=== PATIENT | male | born 1940 | race Caucasian/White ===

== ENCOUNTER 2017-11-24 16:35 | Inpatient (IN) | payer OTHER ==
--- OUTSIDE RECORDS SUMMARY | 2017-11-24 16:37 | XMS REPORT | Clinical Summary ---
:1940 Author Organization [facility] Address [address] [place] [address] Care Team Providers Name Role Phone Ronal Olson MD Primary Care Provider Allergies Not on File Current Medications Not on file Active Problems Not on file Encounters Date Type Specialty Care Team Description 06/01/2017 Hospital Encounter Radiology Jarad, Acute pain of left shoulder; MD Alonzo Bursitis of left hip, unspecified bursa 06/01/2017 Transcribe Orders Access Koycaroleagaltafa, Acute pain of left shoulder (Primary Dx); MD Alonzo Bursitis of left hip, unspecified bursa after 11/23/2016 Social History Tobacco Use Types Packs/Day Years Used Date Never Assessed Sex Assigned at Date Recorded Not on file Last Filed Vital Signs Not on file Plan of Treatment Health Maintenance Due Date Last Done Comments SHINGRIX VACCINE (#1) 1991 ZOSTER VACCINE 2001 PNEUMOCOCCAL POLYSACCHARIDE VACCINE AGE 65 AND OVER 2006 PNEUMOCOCCAL-13 2006 INFLUENZA VACCINE 02/01/2018 Results XR Hip 2-3 View Left (06/01/2017 3:45 PM) Specimen Performing Laboratory [facility] [address] [place] [address] Narrative EXAMINATION:XR HIP 2-3 VIEWS LEFT CLINICAL HISTORY:M25.512 Pain in left shoulder, M70.72 Other bursitis of hipleft hip, pain in left shoulderother bursitis of left hip COMPARISON:None. FINDINGS: The bony pelvis appears intact. There is narrowing of the superior compartment of both hips with osteophytes. 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 There is mild sclerosis of the sacroiliac joints greater on the left. No extraluminal collections are noted. IMPRESSION: 1. Arthritic changes about the hips. 2. Extensive vascular calcification. 3. Mild gas and stool in the colon [id number] Procedure Note Hm Interface, Radiology Results Incoming - 06/01/2017 4:05 PM PROP SAWYER EXAMINATION: XR HIP 2-3 VIEWS LEFT CLINICAL HISTORY: M25.512 Pain in left shoulder, M70.72 Other bursitis of hip left hip, pain in left shoulder other bursitis of left hip COMPARISON: None. FINDINGS: The bony pelvis appears intact. There is narrowing of the superior compartment of both hips with osteophytes. 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 There is mild sclerosis of the sacroiliac joints greater on the left. No extraluminal collections are noted. IMPRESSION: 1. Arthritic changes about the hips. 2. Extensive vascular calcification. 3. Mild gas and stool in the colon [id number] after 11/23/2016 Insurance Payer Benefit Plan / Group Subscriber ID Type Phone Address MEDICARE MEDICARE PART A AND B xxxxxxxxxx Medicare [place], [place] [phone] [place] [address]
[2017-11-24] MEDS ORDERED: ACETAMINOPHEN 500 MG TAB ONE (17:26)
[2017-11-24] MEDS ORDERED: CEFTRIAXONE/SWI 1gm 1 GM/10 ML SYR ONE (17:26)
[2017-11-24] MEDS ORDERED: NA CHLORIDE 0.9% 1,000 ML ONE ×3 (17:26→23:38)
[2017-11-24] MEDS ORDERED: AZITHROMYCIN 500 MG/250 ML BAG ONE (17:26)
--- NOTE | 2017-11-24 17:40 | RAD REPORT ---
EXAM DESCRIPTION: Gabriel Single View11/24/2017 5:31 pm CLINICAL HISTORY: Chest pain COMPARISON: March 2016 FINDINGS: An 8 centimeter right upper lobe opacity is present. The remainder lungs appear clear of acute infiltrate. The lungs are hyperaerated. The heart is normal size. Postsurgical changes involve the chest IMPRESSION: 8 centimeter right upper lobe opacity most likely representing pneumonia. This should b e followed until it has cleared to help exclude a post obstructive process/underlying mass
--- NOTE | 2017-11-24 17:56 | ER ---
Nurse's Notes [facility] Name: Meño Penn Age: 77 yrs Sex: Male : 1940 Arrival Date: 11/24/2017 Time: 16:39 Bed 18 Private MD: Ronal Olson E Diagnosis: Pneumonia, unspecified organism;Hypoxemia Presentation: 11/24 16:42 Presenting complaint: Patient states: Sent by Dr Piper for pneumonia. Transition of aj care: patient was received from another setting of care (ambulatory primary care physician practice). Onset of symptoms was November 24, 2017. Care prior to arrival: None. 16:42 Method Of Arrival: Wheelchair aj 16:42 Acuity: DANAY 2 aj 16:55 Risk Assessment: Do you want to hurt yourself or someone else? Patient reports no hb desire to harm self or others. 17:01 Initial Sepsis Screen: Does the patient meet any 2 criteria? RR > 20 per min. Temp hb <36.0*C (96.8*F)) or > 38.3*C (100.4*F). HR > 90 bpm. Yes Does the patient have a suspected source of infection? Yes: Productive cough/pneumonia If YES to both, name of provider notified: Jose Juan Johnson NP Triage Assessment: 16:43 General: Appears in no apparent distress. uncomfortable, Behavior is calm, cooperative, aj appropriate for age. Neuro: Level of Consciousness is awake, alert, obeys commands, Oriented to person, place, time, situation, Appropriate for age. Respiratory: Reports shortness of breath cough that is pain with respiration Airway is patent Respiratory effort is even, unlabored, Respiratory pattern is symmetrical, tachypnea the patient has mild shortness of breath. Derm: Skin is intact, is thin, Skin is flushed, Skin temperature is hot. Historical: - Allergies: 16:43 nyacin; aj - PMHx: 16:43 COPD; Diabetes - NIDDM; Hypertension; aj - PSHx: 16:43 Heart Surgery; neck [id number]-[id number]; intestinal surgery - non-specific; aj - Immunization history:: Adult Immunizations up to date. - Social history:: Smoking status: Patient/guardian denies using tobacco. - Ebola Screening: : No symptoms or risks identified at this time. Screenin:54 Abuse screen: Denies threats or abuse. Denies injuries from another. Nutritional hb screening: No deficits noted. Tuberculosis screening: No symptoms or risk factors identified. Fall Risk None identified. Assessment: 16:53 General: Appears in no apparent distress. ill, Behavior is calm, cooperative. Pain: hb Pain currently is 5 out of 10 on a pain scale. Neuro: Level of Consciousness is awake, alert, obeys commands, Oriented to person, place, time, situation. Cardiovascular: Heart tones S1 S2 present Capillary refill < 3 seconds Patient's skin is warm and dry. Rhythm is sinus tachycardia. Respiratory: Airway is patent Trachea midline Respiratory effort is even, mildly labored Respiratory pattern is regular, tachypnea Breath sounds with rhonchi bilaterally. GI: No signs and/or symptoms were reported involving the gastrointestinal system. : No signs and/or symptoms were reported regarding the genitourinary system. EENT: No signs and/or symptoms were reported regarding the EENT system. Derm: No signs and/or symptoms reported regarding the dermatologic system. Skin is intact, Skin is pink, warm \T\ dry. Musculoskeletal: No signs and/or symptoms reported regarding the musculoskeletal system. 18:01 Reassessment: Patient appears in no apparent distress at this time. Patient and/or hb family updated on plan of care and expected duration. Pain level reassessed. Patient is alert, oriented x 3, equal unlabored respirations, skin warm/dry/pink. 18:01 Reassessment: Dr. Lerner at bedside. hb 18:32 Reassessment: Patient appears in no apparent distress at this time. Patient and/or hb family updated on plan of care and expected duration. Pain level reassessed. Patient is alert, oriented x 3, equal unlabored respirations, skin warm/dry/pink. Family at bedside. 19:18 Reassessment: Patient appears in no apparent distress at this time. No changes from jd3 previously documented assessment. Patient and/or family updated on plan of care and expected duration. Pain level reassessed. Patient is alert, oriented x 3, equal unlabored respirations, skin warm/dry/pink. Respiratory: Airway is patent Respiratory effort is even, Respiratory pattern is regular, Breath sounds with rhonchi bilaterally. 19:22 Reassessment: lab at bedside recollecting labs. jd3 21:28 Reassessment: Patient appears in no apparent distress at this time. Patient and/or jd3 family updated on plan of care and expected duration. Pain level reassessed. Patient is alert, oriented x 3, equal unlabored respirations, skin warm/dry/pink. pt back from CT. 21:43 Reassessment: Patient appears in no apparent distress at this time. Patient and/or jd3 family updated on plan of care and expected duration. Pain level reassessed. Patient is alert, oriented x 3, equal unlabored respirations, skin warm/dry/pink. pt reported understanding of need for admission. Vital Signs: 16:43 BP 125 / 67; Pulse 119; Resp 26; Temp 101.1; Pulse Ox 94% on R/A; Weight 70.31 kg; aj Height 5 ft. 11 in. (180.34 cm); 17:45 BP 124 / 64; Pulse 112; Resp 24; Pulse Ox 95% on R/A; hb 18:24 BP 138 / 68; Pulse 109; Resp 24; Temp 99.9(O); Pulse Ox 95% on R/A; Pain 4/10; hb 19:13 BP 123 / 67; Pulse 95; Resp 22; Pulse Ox 95% on R/A; mt 20:39 BP 123 / 67; Pulse 91; Resp 18 S; Pulse Ox 94% on R/A; jd3 21:26 BP 123 / 67; Pulse 91; Resp 18 S; Pulse Ox 94% on R/A; Pain 4/10; jd3 16:43 Body Mass Index 21.62 (70.31 kg, 180.34 cm) aj ED Course: 16:39 Patient arrived in ED. mr 16:39 Ronal Olson MD is Private Physician. mr 16:43 Triage completed. aj 16:43 Arm band placed on left wrist. Patient placed in an exam room. aj 16:52 Skylar Milligan, RN is Primary Nurse. hb 16:55 Patient has correct armband on for positive identification. Placed in gown. Bed in low hb position. Call light in reach. Side rails up X 1. 16:56 Jose Juan Johnson NP is PHCP. pm1 16:56 Santosh Swain MD is Attending Physician. pm1 17:16 First set of blood cultures drawn by me. Missed attempt(s): 22 gauge in right dh3 antecubital area. Bleeding controlled, band aid applied, catheter tip intact. 17:18 EKG done, by entry level automotive technician. reviewed by Jose Juan Johnson NP. at1 17:23 X-ray completed. Portable x-ray completed in exam room. Patient tolerated procedure bb2 well. 17:30 XRAY Chest (1 view) In Process Unspecified. EDMS 17:39 Missed attempt(s): 22 gauge in left hand. Bleeding controlled, band aid applied, dh3 catheter tip intact. 17:55 Bella Lerner MD is Hospitalizing Provider. pm1 17:55 Missed attempt(s): 22 gauge in right forearm. Bleeding controlled, band aid applied, kr2 catheter tip intact. 18:00 Inserted saline lock: 24 gauge in right upper arm, using aseptic technique. ,using hb aseptic technique. by SAMAN Alvarado. 20:19 Karina Mendoza MD is Hospitalizing Provider. pm1 21:03 Patient moved to CO. sj 21:26 CT completed. Patient moved back from CO. vm2 21:44 No provider procedures requiring assistance completed. Patient admitted, IV remains in jd3 place. Administered Medications: 17:33 Drug: Tylenol 1000 mg Route: PO; hb 18:23 Follow up: Response: No adverse reaction; Temperature is decreased hb 17:48 Not Given (changed to levaquin): AZITHromycin 500 mg IVPB once over 1 hrs; (mix in 250 pm1 mL NS) 17:48 CANCELLED (Change to levaquin 750): LevaQUIN 500 mg 100 ml IVPB once over 60 mins pm1 18:03 CANCELLED (change to vancomycin): LevaQUIN 750 mg 150 ml IVPB once over 90 mins pm1 18:12 Drug: NS 0.9% 1000 ml Route: IV; Rate: 1000 ml; Site: right upper arm; hb 21:47 Follow up: Response: No adverse reaction; IV Status: Completed infusion; IV Intake: jd3 1000ml 18:12 Drug: Rocephin - (cefTRIAXone) 1 grams Route: IVPB; Infused Over: 30 mins; Site: right hb upper arm; 18:34 Follow up: Response: No adverse reaction; IV Status: Completed infusion hb 18:20 Drug: vancoMYCIN 1 grams Route: IVPB; Infused Over: 2 hrs; Site: right upper arm; hb 21:47 Follow up: Response: No adverse reaction; IV Status: Completed infusion jd3 19:18 Drug: NS 0.9% 1000 ml Route: IV; Rate: 1000 ml; Site: right upper arm; jd3 21:47 Follow up: Response: No adverse reaction; IV Status: Completed infusion; IV Intake: jd3 1000ml Intake: 21:47 IV: 1000ml; Total: 1000ml. jd3 21:47 IV: 1000ml; Total: 2000ml. jd3 Outcome: 17:55 Decision to Hospitalize by Provider. pm1 20:20 Decision to Hospitalize by Provider. pm1 21:44 Condition: stable jd3 21:44 Instructed on the need for admit, Demonstrated understanding of instructions. 21:45 Admitted to Med/surg accompanied by nurse, via wheelchair, room 427, with chart, Report jd3 called to Nora DAVISON 21:51 Patient left the ED. bs1 Signatures: Dispatcher [employer] EDMS Sheila Schmidt, RN RN Fay Mccullough mr Brooks, Gracie Sheila gama, minilab operator EKG Tat1 Jose Juan Johnson, FRONT DESK FRONT DESK pm1 Skylar Milligan, RN RN Susan Villagran 2 [facility] Martin Santiago RN RN jd3 Jenny Crain RN RN mary2 Jessica Kapoor 2 Jessica Castillo, RN RN bs1 Corrections: (The following items were deleted from the chart) 18:25 18:04 BP 124 / 64; Pulse 112bpm; Resp 24bpm; Pulse Ox 95% RA; hb hb
--- NOTE | 2017-11-24 17:56 | EDPHYS ---
Physician Documentation [facility] Name: Meño Penn Age: 77 yrs Sex: Male : 1940 Arrival Date: 11/24/2017 Time: 16:39 Bed 18 Private MD: Ronal Olson E ED Physician Santosh Swain HPI: 11/24 18:00 This 77 yrs old Male presents to ER via Wheelchair with complaints of pm1 Pneumonia. 18:00 The patient or guardian reports cough, Occasional sputum, Shortness of breath. Onset: pm1 The symptoms/episode began/occurred Patient with shortness of breath and cough since the beginning of November. Patient had a CT scan of his Chest performed at [facility] on November 04. Patient was diagnosed with PE and was started on eliquis. Patient started having fevers 6 days ago. Seen by Dr. Chapman on Tuesday at [facility]. Patient was diagnosed with pneumonia and was offered admission. Patient refused admission at that time and was instructed to follow u with his PCP. Saw his PCP, Dr. Piper today and was instructed to report to the ER for evaluation of likely pneumonia. 18:00 Patient with nasal cancer in remission. pm1 Historical: - Allergies: 16:43 nyacin; aj - PMHx: 16:43 COPD; Diabetes - NIDDM; Hypertension; aj - PSHx: 16:43 Heart Surgery; neck coemfeo-sla-[id number]; intestinal surgery - non-specific; aj - Immunization history:: Adult Immunizations up to date. - Social history:: Smoking status: Patient/guardian denies using tobacco. - Ebola Screening: : No symptoms or risks identified at this time. ROS: 18:00 Eyes: Negative for injury, pain, redness, and discharge, ENT: Negative for injury, pm1 pain, and discharge, Neck: Negative for injury, pain, and swelling. 18:00 Abdomen/GI: Negative for abdominal pain, nausea, vomiting, diarrhea, and constipation, Back: Negative for injury and pain, : Negative for injury, bleeding, discharge, and swelling, MS/Extremity: Negative for injury and deformity, Skin: Negative for injury, rash, and discoloration, Neuro: Negative for headache, weakness, numbness, tingling, and seizure. 18:00 Constitutional: Positive for fever, Negative for poor PO intake. 18:00 Cardiovascular: Positive for chest pain, of the anterior aspect of right upper chest, Negative for edema, palpitations. 18:00 Respiratory: Positive for cough, occasional sputum, shortness of breath. Exam: 11/25 01:38 Constitutional: This is a well developed, well nourished patient who is awake, alert, pm1 and in no acute distress. Head/Face: Normocephalic, atraumatic. Eyes: Pupils equal round and reactive to light, extra-ocular motions intact. Lids and lashes normal. Conjunctiva and sclera are non-icteric and not injected. Cornea within normal limits. Periorbital areas with no swelling, redness, or edema. Neck: Trachea midline, no thyromegaly or masses palpated, and no cervical lymphadenopathy. Supple, full range of motion without nuchal rigidity, or vertebral point tenderness. No Meningismus. Chest/axilla: Normal chest wall appearance and motion. Nontender with no deformity. No lesions are appreciated. Cardiovascular: Regular rate and rhythm with a normal S1 and S2. No gallops, murmurs, or rubs. Normal PMI, no JVD. No pulse deficits. Abdomen/GI: Soft, non-tender, with normal bowel sounds. No distension or tympany. No guarding or rebound. No evidence of tenderness throughout. Back: No spinal tenderness. No costovertebral tenderness. Full range of motion. Skin: Warm, dry with normal turgor. Normal color with no rashes, no lesions, and no evidence of cellulitis. MS/ Extremity: Pulses equal, no cyanosis. Neurovascular intact. Full, normal range of motion. ENT: External ear(s): are unremarkable, Nose: External nose: Absent, Nasal mucosa: normal, Mouth: is normal. Respiratory: the patient does not display signs of respiratory distress, Respirations: normal, Breath sounds: bronchial sounds, are heard diffusely. Neuro: Orientation: is normal, Motor: is normal, Sensation: is normal. Vital Signs: 11/24 16:43 BP 125 / 67; Pulse 119; Resp 26; Temp 101.1; Pulse Ox 94% on R/A; Weight 70.31 kg; aj Height 5 ft. 11 in. (180.34 cm); 17:45 BP 124 / 64; Pulse 112; Resp 24; Pulse Ox 95% on R/A; hb 18:24 BP 138 / 68; Pulse 109; Resp 24; Temp 99.9(O); Pulse Ox 95% on R/A; Pain 4/10; hb 19:13 BP 123 / 67; Pulse 95; Resp 22; Pulse Ox 95% on R/A; mt 20:39 BP 123 / 67; Pulse 91; Resp 18 S; Pulse Ox 94% on R/A; jd3 21:26 BP 123 / 67; Pulse 91; Resp 18 S; Pulse Ox 94% on R/A; Pain 4/10; jd3 16:43 Body Mass Index 21.62 (70.31 kg, 180.34 cm) aj MDM: 16:57 Patient medically screened. pm1 17:54 Data reviewed: vital signs. pm1 17:54 Physician consultation: Bella Lerner MD was contacted at 17:54, regarding admission, pm1 patient's condition, in the emergency department to see patient at 17:54. 18:07 Physician consultation: Bella Lerner MD after a discussion of the case, a pm1 recommendation for transfer for higher level of care is made, Recommends transfer to [facility] post interpretation of patient's CT scan. Interpretation from November 04, 2017 "CT chest shows interval increase in right upper lobe nodule . Waxing and waning lung opacities consistent with infection/inflammation. Acute pulmonary embolism in segmental, subsegmental pulmonary arterial branches to the right upper lobe.". 20:00 ED course: [facility] refused transfer. Recommends admission to hospital here, treat pm1 patient's pneumonia and follow up with research animal facility supervisor on discharge. 20:17 Physician consultation: Karina Mendoza MD was contacted at 20:10, regarding admission, pm1 and will see patient Dr. Pena discussed with Dr. Mendoza admission and patient's condition. 11/24 17:06 Order name: Basic Metabolic Panel; Complete Time: 18:57 pm1 11/24 17:06 Order name: BNP; Complete Time: 21:09 pm1 11/24 17:06 Order name: CBC with Diff; Complete Time: 03:30 pm11/24 17:06 Order name: LFT's; Complete Time: 18:57 pm1 11/24 17:06 Order name: Magnesium; Complete Time: 18:57 pm1 11/24 17:06 Order name: PT-INR; Complete Time: 18:57 pm1 24 17:06 Order name: Ptt, Activated; Complete Time: 18:57 pm11/24 17:06 Order name: Troponin (emerg Dept Use Only); Complete Time: 19:39 pm11/24 17:06 Order name: Procalcitonin; Complete Time: 19:39 pm11/24 17:06 Order name: Lactate; Complete Time: 18:36 pm11/24 17:06 Order name: Blood Culture Adult (2) [facility] 11/24 20:02 Order name: Urine Dipstick--Ancillary (enter results) [facility] 11/24 21:02 Order name: Lipid Profile [facility] 11/24 21:02 Order name: Lipid Profile [facility] 11/24 17:06 Order name: XRAY Chest (1 view); Complete Time: 17:43 pm11/24 17:06 Order name: EKG; Complete Time: 17:07 pm11/24 17:06 Order name: Cardiac monitoring; Complete Time: 17:07 pm11/24 17:06 Order name: EKG - Nurse/Tech; Complete Time: 17:23 11/24 17:06 Order name: IV Saline Lock; Complete Time: 18:19 pm11/24 21:02 Order name: Thorax W/ Con; Complete Time: 03:30 [facility] 11/24 21:02 Order name: Heart Healthy [facility] 11/24 21:02 Order name: Sputum Culture [facility] 11/24 17:06 Order name: Labs collected and sent; Complete Time: 18:19 pm11/24 17:06 Order name: O2 Per Protocol; Complete Time: 17:07 pm11/24 17:06 Order name: O2 Sat Monitoring; Complete Time: 17:07 11/24 17:06 Order name: Urine Dipstick-Ancillary (obtain specimen); Complete Time: 20:21 pm Administered Medications: 17:33 Drug: Tylenol 1000 mg Route: PO; hb 18:23 Follow up: Response: No adverse reaction; Temperature is decreased hb 17:48 Not Given (changed to levaquin): AZITHromycin 500 mg IVPB once over 1 hrs; (mix in 250 pm1 mL NS) 17:48 CANCELLED (Change to levaquin 750): LevaQUIN 500 mg 100 ml IVPB once over 60 mins pm1 18:03 CANCELLED (change to vancomycin): LevaQUIN 750 mg 150 ml IVPB once over 90 mins pm1 18:12 Drug: NS 0.9% 1000 ml Route: IV; Rate: 1000 ml; Site: right upper arm; hb 21:47 Follow up: Response: No adverse reaction; IV Status: Completed infusion; IV Intake: jd3 1000ml 18:12 Drug: Rocephin - (cefTRIAXone) 1 grams Route: IVPB; Infused Over: 30 mins; Site: right hb upper arm; 18:34 Follow up: Response: No adverse reaction; IV Status: Completed infusion hb 18:20 Drug: vancoMYCIN 1 grams Route: IVPB; Infused Over: 2 hrs; Site: right upper arm; hb 21:47 Follow up: Response: No adverse reaction; IV Status: Completed infusion jd3 19:18 Drug: NS 0.9% 1000 ml Route: IV; Rate: 1000 ml; Site: right upper arm; jd3 21:47 Follow up: Response: No adverse reaction; IV Status: Completed infusion; IV Intake: jd3 1000ml Disposition: 11/25 10:46 Co-signature as Attending Physician, Santosh Swain MD I agree with the assessment and kdr plan of care. Disposition: 11/24/17 20:20 Hospitalization ordered by Karina Mendoza for Inpatient Admission. Preliminary diagnosis are Pneumonia, unspecified organism, Hypoxemia. - Bed requested for Telemetry/MedSurg (Inpatient). - Status is Inpatient Admission. bs1 - Condition is Stable. - Problem is new. - Symptoms have improved. UTI on Admission? No Signatures: Dispatcher [employer] EDMS Sheila Schmidt RN RN aj Rittger, Kevin, MD MD kdr Kane Cavazos PA PA cp Jose Juan Johnson NP CARTOGRAPHY/MAPPING TECHNICIAN pm1 Skylar Milligan RN RN Martin Santiago RN RN jJesisca Patterson RN RN bs1 Corrections: (The following items were deleted from the chart) 11/24 17:48 17:47 LevaQUIN 500 mg 100 ml IVPB once over 60 mins ordered. pm1 pm1 18:03 17:48 LevaQUIN 750 mg 150 ml IVPB once over 90 mins ordered. pm1 pm1 18:07 17:55 Hospitalization Ordered by Bella Lerner MD for Inpatient Admission. Preliminary pm1 diagnosis is Pneumonia, unspecified organism. Bed requested for Telemetry/MedSurg (Inpatient). Status is Inpatient Admission. Condition is Stable. Problem is new. Symptoms have improved. UTI on Admission? No. pm1 20:53 20:20 Hospitalization Ordered by Karina Mendoza MD for Inpatient Admission. Preliminary cp diagnosis is Pneumonia, unspecified organism; Hypoxemia. Bed requested for Telemetry/MedSurg (Inpatient). Status is Inpatient Admission. Condition is Stable. Problem is new. Symptoms have improved. UTI on Admission? No. pm1 21:51 20:53 11/24/2017 20:20 Hospitalization Ordered by Karina Mendoza MD for Inpatient bs1 Admission. Preliminary diagnosis is Pneumonia, unspecified organism; Hypoxemia. Bed requested for Telemetry/MedSurg (Inpatient). Status is Inpatient Admission. Condition is Stable. Problem is new. Symptoms have improved. UTI on Admission? No. cp
[2017-11-24] MEDS ORDERED: VANCOMYCIN 1 GM/250 ML BAG ONE (18:15)
[2017-11-24 18:31] LABS: Protime INR 1.72
[2017-11-24 18:48] LABS: Bicarbonate 26 mEq/L (21-31); Glucose Level 71 mg/dL (65-120); Potassium 3.8 mEq/L (3.6-5.0); Sodium Level 132 mEq/L (135-145)
[2017-11-24 18:54] LABS: ALT/SGPT 17 IU/L (10-60); AST/SGOT 23 IU/L (10-42); Albumin 3.5 g/dL (3.2-5.5); Alkaline Phosphatase 180 IU/L (42-121); BUN Blood Urea Nitrogen 13 mg/dL (6-20); Bilirubin Direct 0.3 mg/dL (0-0.2); Magnesium 2.1 mg/dL (1.8-2.5); Protein, Total 7.6 g/dL (6.0-8.3)
[2017-11-24] MEDS ORDERED: ONDANSETRON 4 MG/2 ML VIAL IV PRN (20:57)
[2017-11-24] MEDS ORDERED: ACETAMINOPHEN 500 MG TAB PO PRN (20:57)
[2017-11-24] MEDS ORDERED: CEFTRIAXONE 1 GM/NS 50 ML 1 GM/50 ML BAG IV SCH (21:00)
[2017-11-24 21:21] LABS: Absolute Lymphocytes (CBC) 0.9 K/uL (0.7-4.9); Absolute Monocytes 1.4 K/uL (0.1-1.3); Basophils % 0.1 % (0-1.3); Hematocrit 37.7 % (39.6-49.0); Lymphocytes % 5.3 % (15.3-44.8); MCH 33.1 pg (27.0-35.0); MCV 96.2 fL (80-100); MPV 7.6 fL (7.6-11.3); Monocytes % 8.3 % (3.3-12.3); RBC Red Blood Cell Count 3.92 M/uL (4.33-5.43)
[2017-11-24 22:21] LABS: Platelet Estimate ADEQ; Urine White Blood Cell Casts OK
[2017-11-24 22:22] LABS: Blood Morphology Comment NOT SEEN (NOT SEEN)
[2017-11-24 22:34] LABS: Urine Blood NEGATIVE (NEG); Urine Glucose NEGATIVE (NEG); Urine Protein 1+ (NEG); Urine Specific Gravity 1.015 (1.005-1.030)
--- NOTE | 2017-11-24 22:54 | RAD REPORT ---
EXAM DESCRIPTION: CT - Thorax W/ Con - 11/24/2017 9:26 pm CLINICAL HISTORY: Cough COMPARISON: None TECHNIQUE: Computed axial tomography of the chest was obtained. 100 cc Isovue 300 was administered i ntravenously. All CT scans are performed using dose optimization technique as appropriate and may include automated exposure control or mA/KV adjustment according to patient size. FINDINGS: An 8 centimeter right upper lobe consolidation is present. It contains a cavity. Mild noemi tional patchy alveolar right upper lobe opacities seen. The left lung is clear. Calcified mediastinal and calcified hilar lymph nodes are noted. A pleural effusion is not present. A pericardial effusion is not seen. IMPRESSION: 8 centimeter right upper lobe consolidation containing cavity probably representing bact erial pneumonia. Two possibilities include streptococcus and Klebsiella. Otherconsiderations include TB, fungus an neoplasm. This should be followed until it is clear to help exclude a post obstructive process/underlying mass
[2017-11-24] MEDS: ENOXAPARIN 80 MG/0.8 ML SQ SCH (23:46)
[2017-11-24] MEDS: NA CHLORIDE 0.9% 1,000 ML IV SCH (23:47)
[2017-11-25] MEDS ORDERED: ACETAMINOPHEN 500 MG TAB ONE (04:07)
[2017-11-25 04:23] VITALS: BMI 21.6
--- NOTE | 2017-11-25 06:56 | EKG ---
Test Date: 2017-11-24 Test Time: 17:15:45 [employer] Driver: WILLIAM MEASUREMENT RESULTS: Intervals: Rate: 106 WV: 140 QRSD: 88 QT: 354 QTc: 470 [place]: P: 17 WV: 140 QRS: 57 T: 67 INTERPRETIVE STATEMENTS: Sinus tachycardia Septal infarct, age undetermined Abnormal ECG Compared to ECG 11/27/2015 11:20:19 Myocardial infarct finding now present Sinus rhythm no longer present Electronically Signed On 11-25-17 06:55:11 CDT by Delon Courtney
[2017-11-25] MEDS ORDERED: PNEUMOCOCCAL VACCINE 0.5 ML IMVAC ONE (08:00)
--- NOTE | 2017-11-25 08:57 | P.HP ---
Certification for Inpatient Patient admitted to: Inpatient With expected LOS: >2 Midnights Patient will require the following post-hospital care: None Practitioner: I am a practitioner with admitting privileges, knowledge of patient current condition, hospital course, and medical plan of care. Services: Services provided to patient in accordance with Admission requirements found in Title 42 Section 412.3 of the Code of Federal Regulations Patient History Date of Service: 11/24/17 Reason for admission: Cavitary pneumonia History of Present Illness: Patient is a 77-year-old gentleman with a history of head and neck cancer, who came into the hospital with cough and congestion. Patient has also been short of breath. Patient had a chest x-ray which revealed a right upper lobe mass versus pneumonia. Patient has been following up with [facility] as there was concerned that patient had a recurrence of the head and neck cancer. Patient has had radiation and chemotherapy in the past. Patient has also been given IV hydration. Patient was admitted to the hospital for treatment for a possible postobstructive pneumonia. Plan is to get a repeat CT scan in 4-6 weeks to reassess for a postobstructive process. Allergies niacin [From Niaspan Extended-Release] Allergy (Verified 11/25/17 03:43) Rash Home Medications: Albuterol [Proventil] 17 gm IH Q6HR 01/10/14 Aspirin 81 mg PO DAILY 01/10/14 Fenofibrate [Tricor*] 160 mg PO DAILY 01/10/14 Fluticasone/Salmeterol [Advair 250/50 Diskus*] 1 puff IH BID 01/10/14 Ipratropium/Albuterol Sulfate [Combivent Respimat Inhal [place]] 4 gm IH Q4H PRN 01/10/14 Simvastatin [Zocor*] 40 mg PO BEDTIME 01/10/14 Garlic [Odor Free Garlic] 1 tab PO DAILY 08/27/14 Glipizide S.a. [Glucotrol Xl*] 5 mg PO BREAKFAST #30 tab 08/29/14 Amlodipine [Norvasc*] 5 mg PO DAILY 09/23/14 Atenolol [Tenormin] 100 mg PO DAILY AFTER SUPPER 09/23/14 Pantoprazole [Protonix Tab] 40 mg PO DAILY #30 tab 01/11/15 - Past Medical/Surgical History Has patient received pneumonia vaccine in the past: No Diabetic: Yes -: Hypertension -: COPD -: Coronary artery disease -: Type 2 diabetes -: Restless Leg syndrome -: Hyperlipidemia -: high cholesterol -: Cardiac catheterization with stent placement x2 -: Coronary artery bypass grafting x 3 vessels -: Left carotid artery stent -: C-spine surgery - Family History Father Medical History: Lung disease, GI disease - Social History Smoking Status: Current every day smoker Alcohol use: Yes CD- Drugs: Yes Caffeine use: Yes Place of Residence: Home Review of Systems 10-point ROS is otherwise unremarkable Physical Examination - Vital Signs Temperature: 100.3 F Blood Pressure: 131/63 Pulse: 101 Respirations: 20 Pulse Ox (%): 95 - Physical Exam General: Alert, In no apparent distress, Oriented x3 HEENT: Normocephalic, PERRLA, Other (Patient with a nasal resection), EOMI Neck: Supple, 2+ carotid pulse no bruit, JVD not distended, No Thyromegaly Respiratory: Diminished, Rhonchi/gurgles Cardiovascular: Regular rate/rhythm, Normal S1 S2, Systolic murmur Gastrointestinal: Normal bowel sounds, Hypoactive, Soft and benign, Non- distended, No tenderness Musculoskeletal: No clubbing, No swelling, No contractures Integumentary: No rashes Neurological: Normal gait, Normal strength at 5/5 x4 extr, Normal tone, Sensation intact, Cranial nerves 3-12 intact Assessment & Plan - Problems (Diagnosis) (1) Head and neck cancer Current Visit: Yes Status: Acute (2) Postobstructive pneumonia Current Visit: Yes Status: Acute (3) CAD (coronary artery disease), autologous vein bypass graft Current Visit: No Status: Acute (4) COPD exacerbation Onset Date: 08/27/14 Current Visit: No Status: Acute (5) Diabetes mellitus Onset Date: 08/27/14 Current Visit: No Status: Acute (6) Pancreatitis Onset Date: 01/10/15 Current Visit: No Status: Acute - Plan 1. Continue with IV antibiotics 2. Awaiting sputum and blood culture 3. Repeat chest x-ray 4. CT scan of the chest to evaluate for postobstructive pneumonia pending 5. Pulmonary consultation 6. Continue with nebs as needed 7. O2 per protocol 8. Continue with gentle hydration 9. Repeat labs including CBC and renal function in a.m. 10. Strict blood sugar control 11. GI and DVT prophylaxis Discharge Plan: Home Plan to discharge in: Greater than 2 days - Advance Directives Does patient have a Living Will: Yes Does patient have a Durable POA for Healthcare: Yes - Code Status/Comfort Care Code Status Assessed: Yes Code Status: Full Code Critical Care: No Time Spent Managing PTS Care (In Minutes): 50
[2017-11-25] MEDS ORDERED: AZITHROMYCIN IV 500 MG in NA CHLORIDE 0.9% 250 ML IVPB SCH (09:00)
[2017-11-25] MEDS ORDERED: POTASSIUM CL SA 10 MEQ TAB PO ONE (09:00)
[2017-11-25] MEDS ORDERED: CEFTRIAXONE/SWI 1gm 1 GM/10 ML SYR IV SCH (09:00)
[2017-11-25] MEDS: ENOXAPARIN 80 MG/0.8 ML SQ SCH (09:00)
--- NOTE | 2017-11-25 10:06 | P.CNS ---
Date of Consult: 11/25/17 Reason for Consult: Cavitary pneumonia Chief Complaint: Cavitary pneumonia History of Present Illness: Patient is 77 years of age it was admitted to the hospital complaining of a pneumonia he has been sick for the past 3-4 weeks has a history of COPD continues to smoke uses nebulizers on oxygen at home been complaining of a cough productive sputum fever and chills patient has been followed at [facility] for head and neck cancer there is a possibility of occurrence cancer or postobstructive pneumonia Allergies niacin [From Niaspan Extended-Release] Allergy (Verified 11/25/17 03:43) Rash Home Medications: Albuterol [Proventil] 17 gm IH Q6HR 01/10/14 Aspirin 81 mg PO DAILY 01/10/14 Fenofibrate [Tricor*] 160 mg PO DAILY 01/10/14 Fluticasone/Salmeterol [Advair 250/50 Diskus*] 1 puff IH BID 01/10/14 Ipratropium/Albuterol Sulfate [Combivent Respimat Inhal [place]] 4 gm IH Q4H PRN 01/10/14 Simvastatin [Zocor*] 40 mg PO BEDTIME 01/10/14 Garlic [Odor Free Garlic] 1 tab PO DAILY 08/27/14 Glipizide S.a. [Glucotrol Xl*] 5 mg PO BREAKFAST #30 tab 08/29/14 Amlodipine [Norvasc*] 5 mg PO DAILY 09/23/14 Atenolol [Tenormin] 100 mg PO DAILY AFTER SUPPER 09/23/14 Pantoprazole [Protonix Tab] 40 mg PO DAILY #30 tab 01/11/15 - Past Medical/Surgical History Diabetic: Yes -: Hypertension -: COPD -: Coronary artery disease -: Type 2 diabetes -: Restless Leg syndrome -: Hyperlipidemia -: high cholesterol -: Head and neck cancer -: Cardiac catheterization with stent placement x2 -: Coronary artery bypass grafting x 3 vessels -: Left carotid artery stent -: C-spine surgery -: Nose amputation - Family History Father Medical History: Lung disease, GI disease - Social History Smoking Status: Current every day smoker Alcohol use: Yes CD- Drugs: Yes Caffeine use: Yes Place of Residence: Home Review of Systems General: Weakness Respiratory: Cough, Shortness of Breath, SOB with Excertion Neurological: Weakness Physical Examination Temp Pulse Resp BP Pulse Ox 100.3 F 101 H 20 131/63 95 11/25/17 08:58 11/25/17 08:58 11/25/17 08:58 11/25/17 08:58 11/25/17 08:58 General: Alert, Oriented x3, Other (Patient has nasal amputation is I suspect from is is head and neck cancer) HEENT: Atraumatic Neck: Supple Respiratory: Expiratory wheezes Cardiovascular: No edema, Regular rate/rhythm Gastrointestinal: Normal bowel sounds, Soft and benign - Problems (1) Pneumonia Current Visit: Yes Status: Acute Plan: Patient is 77 years of age with a 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
[2017-11-25] MEDS: NA CHLORIDE 0.9% 1,000 ML IV SCH ×2 (10:20→10:55)
[2017-11-25] MEDS: SMZ./TMP. 800/160 MG TABLET PO SCH ×2 (10:56→20:25)
[2017-11-25] MEDS ORDERED: IBUPROFEN 400 MG TAB PO PRN (12:17)
[2017-11-25] MEDS: ACETAMINOPHEN 500 MG TAB PO PRN ×2 (12:24→20:25)
[2017-11-25] MEDS: ALBUTEROL 2.5 MG/3 ML NEB SOL NEB PRN ×2 (12:26→19:39)
[2017-11-25] MEDS: IPRATROPIUM BROM 0.5MG/2.5ML NEB PRN ×2 (12:26→19:39)
[2017-11-25] MEDS ORDERED: ALBUTEROL 2.5 MG/3 ML NEB SOL NEB SCH (14:00)
[2017-11-25] MEDS ORDERED: IPRATROPIUM BROM 0.5MG/2.5ML NEB SCH (14:00)
[2017-11-25] MEDS: PIPER/TAZO/NS 3.375gm 3.375 GM/100 ML BAG IVPB SCH (17:47)
[2017-11-25] MEDS: ARFORMOTEROL TARTRATE 15 MCG/2 ML VIAL.NEB NEB SCH (19:39)
[2017-11-26] MEDS: NA CHLORIDE 0.9% 1,000 ML IV SCH ×3 (00:52→21:24)
[2017-11-26] MEDS: PIPER/TAZO/NS 3.375gm 3.375 GM/100 ML BAG IVPB SCH ×3 (00:52→17:00)
[2017-11-26 05:21] LABS: Absolute Lymphocytes (CBC) 0.6 K/uL (0.7-4.9); Absolute Monocytes 0.9 K/uL (0.1-1.3); Absolute Neutrophil 13.2 K/uL (1.8-8.0); Basophils % 1.4 % (0-1.3); Eosinophils % 0.2 % (0-4.4); Hematocrit 40.4 % (39.6-49.0); Lymphocytes % 4.2 % (15.3-44.8); MCH 32.7 pg (27.0-35.0); MCV 96.9 fL (80-100); MPV 7.3 fL (7.6-11.3); Monocytes % 6.2 % (3.3-12.3); RBC Red Blood Cell Count 4.17 M/uL (4.33-5.43)
[2017-11-26] MEDS: PANTOPRAZOLE 40MG TABLET PO SCH (05:33)
[2017-11-26 05:46] LABS: BUN Blood Urea Nitrogen 9 mg/dL (6-20); Bicarbonate 25 mEq/L (21-31); Glucose Level 97 mg/dL (65-120); Potassium 3.6 mEq/L (3.6-5.0); Sodium Level 136 mEq/L (135-145)
[2017-11-26] MEDS ORDERED: POTASSIUM CL SA 10 MEQ TAB PO ONE ×3 (07:26→09:00)
[2017-11-26] MEDS: ARFORMOTEROL TARTRATE 15 MCG/2 ML VIAL.NEB NEB SCH ×2 (08:06→19:03)
[2017-11-26] MEDS: SMZ./TMP. 800/160 MG TABLET PO SCH ×2 (08:25→21:17)
[2017-11-26] MEDS: APIXABAN 5 MG TABLET PO SCH ×2 (08:25→21:17)
[2017-11-26] MEDS: FENOFIBRATE 160 MG TAB PO SCH (08:25)
[2017-11-26] MEDS: ACETAMINOPHEN 500 MG TAB PO PRN ×2 (08:26→16:33)
[2017-11-26] MEDS: NIFEDIPINE XL 30 MG TABLET PO SCH (08:26)
[2017-11-26] MEDS ORDERED: ENOXAPARIN 40 MG/0.4 ML SQ SCH (09:00)
--- NOTE | 2017-11-26 10:15 | RAD REPORT ---
EXAM DESCRIPTION: RAD - Chest Single View - 11/26/2017 8:40 am CLINICAL HISTORY: Pneumonia COMPARISON: 11/24/2017 FINDINGS: Portable technique limits examination quality. Moderate worsening of airspace opacity in the right upper lobe is noted, compatible with worsening pn eumonia. The heart is normal in size. No displaced fractures.Sternotomy wires present. IMPRESSION: Moderate worsening of right upper lobe pneumonia
--- NOTE | 2017-11-26 13:50 | P.PN ---
Subjective Date of Service: 11/26/17 Primary Care Provider: Dr. Olson Chief Complaint: Cavitary pneumonia Subjective: Doing well Physical Examination - Vital Signs Temperature: 99.4 F Blood Pressure: 148/78 Pulse: 85 Respirations: 18 Pulse Ox (%): 93 - Physical Exam General: Alert, In no apparent distress, Oriented x3, Cooperative HEENT: Atraumatic Neck: Supple Respiratory: Expiratory wheezes (bilateral) Cardiovascular: Normal pulses, Regular rate/rhythm Gastrointestinal: Normal bowel sounds, No tenderness, No masses, No rebound, No guarding Musculoskeletal: No erythema, No tenderness, No warmth Integumentary: No erythema, No warmth, No cyanosis Neurological: Normal speech, Normal strength at 5/5 x4 extr, Normal tone, Normal affect - Studies Microbiology Data (last 24 hrs): 11/24/17 17:16 Blood - Blood Anaerobic Blood Culture - Final Medications List Reviewed: Yes Assessment & Plan - Problems (Diagnosis) (1) Pulmonary embolism Current Visit: Yes Status: Chronic Plan: Patient recently diagnosed with pulmonary embolism in early November to the right upper lung field. Will continue anti coagulation therapy. Will discuss with pulmonology about pneumonia to the upper area. This may be associated with the pulmonary embolism. Qualifiers: Chronicity: chronic Acute cor pulmonale presence: without acute cor pulmonale (2) Chronic anticoagulation Current Visit: Yes Status: Chronic Plan: Continue with anti coagulation therapy for history of pulmonary embolism. (3) Hyperlipidemia Current Visit: Yes Status: Chronic Plan: Will continue with his medication Qualifiers: Hyperlipidemia type: unspecified Qualified Code(s): E78.5 - Hyperlipidemia , unspecified (4) Diabetes mellitus Onset Date: 11/25/17 Current Visit: Yes Status: Chronic Plan: Will check previous A1c. Will continue sliding scale. Qualifiers: Diabetes mellitus type: type 2 Diabetes mellitus terminal clerk insulin use: without mcfp use Diabetes mellitus complication status: with other specified complication Qualified Code(s): E11.69 - Type 2 diabetes mellitus with other specified complication (5) Head and neck cancer Onset Date: 11/25/17 Current Visit: Yes Status: Chronic Plan: Followed by Oncology (6) Pneumonia Onset Date: 11/25/17 Current Visit: Yes Status: Chronic Plan: Right upper cavitary pneumonia noted. This may be associated with recent pulmonary embolism. Will continue with antibiotic therapy. Patient being evaluated for possible tuberculosis due to his compromised immune system. Will discuss with pulmonology. Patient will also with underlying COPD. Will provide medication. Qualifiers: Pneumonia type: due to unspecified organism Laterality: right Lung location: upper lobe of lung Qualified Code(s): J18.1 - Lobar pneumonia, unspecified organism (7) Anemia Onset Date: 01/23/15 Current Visit: No Status: Chronic Plan: Mild. Will monitor closely. Qualifiers: Anemia type: other cause Other causes of anemia: chronic disease, other Qualified Code(s): D63.8 - Anemia in other chronic diseases classified elsewhere (8) COPD (chronic obstructive pulmonary disease) Onset Date: 01/10/15 Current Visit: No Status: Acute Plan: Patient with mild COPD exacerbation. Will continue with medication. Maintain sats above 90%. Qualifiers: COPD type: COPD with acute exacerbation Qualified Code(s): J44.1 - Chronic obstructive pulmonary disease with (acute) exacerbation (9) Hypertension Current Visit: Yes Status: Chronic Plan: Medication restarted. Will monitor and adjust appropriately. Qualifiers: Hypertension type: essential hypertension Qualified Code(s): I10 - Essential (primary) hypertension Discharge Plan: Home Plan to discharge in: 72 Hours Time Spent Managing Pts Care (In Minutes): 55
[2017-11-26] MEDS: ATENOLOL 50 MG TAB PO SCH (16:34)
[2017-11-26] MEDS ORDERED: HOME MED 1 EA UNK (Simvastatin [Zocor*] 40 MG) PO SCH (21:00)
[2017-11-26] MEDS: ATORVASTATIN 20 MG TAB PO SCH (21:17)
[2017-11-27] MEDS: PIPER/TAZO/NS 3.375gm 3.375 GM/100 ML BAG IVPB SCH ×3 (00:04→17:19)
[2017-11-27] MEDS: ACETAMINOPHEN 500 MG TAB PO PRN ×2 (00:19→05:54)
[2017-11-27] MEDS: NA CHLORIDE 0.9% 1,000 ML IV SCH (03:00)
[2017-11-27 05:41] LABS: Absolute Lymphocytes (CBC) 0.8 K/uL (0.7-4.9); Absolute Neutrophil 14.1 K/uL (1.8-8.0); Basophils % 0.3 % (0-1.3); Eosinophils % 0.1 % (0-4.4); Hematocrit 35.6 % (39.6-49.0); Lymphocytes % 5.2 % (15.3-44.8); MCH 33.2 pg (27.0-35.0); MPV 7.4 fL (7.6-11.3); RBC Red Blood Cell Count 3.67 M/uL (4.33-5.43)
[2017-11-27] MEDS: PANTOPRAZOLE 40MG TABLET PO SCH (05:53)
[2017-11-27 05:56] LABS: BUN Blood Urea Nitrogen 13 mg/dL (6-20); Bicarbonate 23 mEq/L (21-31); Glucose Level 157 mg/dL (65-120); Magnesium 1.9 mg/dL (1.8-2.5); Phosphorus 2.2 mg/dL (2.5-4.3); Potassium 3.8 mEq/L (3.6-5.0); Sodium Level 137 mEq/L (135-145)
[2017-11-27] MEDS ORDERED: POTASSIUM PHOS IN 0.9 % NACL 15 MMOL/250 ML BAG IV ONE (08:00)
[2017-11-27] MEDS: ARFORMOTEROL TARTRATE 15 MCG/2 ML VIAL.NEB NEB SCH ×2 (08:11→19:38)
--- NOTE | 2017-11-27 08:23 | RAD REPORT ---
EXAM DESCRIPTION: RAD - Chest Single View - 11/27/2017 6:39 am CLINICAL HISTORY: Pneumonia COMPARISON: CT chest November 24, portable chest November 26, portable chest November 24 TECHNIQUE: AP portable chest image was obtained 0613 hours . FINDINGS: Extensive airspace consolidation in the right lung field has show no improvement. Findings may be slightly worse in the mid to lower right lung field. Reduced lung volume accentuates severity of the pneumonia. Trachea remains midline. No measurable failure or volume overload component. There is a curvilinear density along the mid and upper right lung field that is probably skin fold ar tifact. Pneumothorax is not entirely excluded. Follow-up imaging would be recommended to monitor this finding. Heart and vasculature are normal. No measurable pleural effusion and no pneumothorax. No gross bony abnormality seen. No acute aortic findings suspected. IMPRESSION: Consolidated pneumonia in the right lung field showing no improvement and possible sligh t progression since prior day imaging. Curvilinear density right lung field is probably a skin fold artifact rather than pneumothorax. Repeat chest exam or CT chest imaging could be performed to further evaluate this finding.
[2017-11-27] MEDS: FENOFIBRATE 160 MG TAB PO SCH (09:19)
[2017-11-27] MEDS: APIXABAN 5 MG TABLET PO SCH ×2 (09:19→21:57)
[2017-11-27] MEDS: NIFEDIPINE XL 30 MG TABLET PO SCH (09:19)
[2017-11-27] MEDS: SMZ./TMP. 800/160 MG TABLET PO SCH ×2 (09:19→21:56)
--- NOTE | 2017-11-27 12:50 | P.PN ---
Subjective Date of Service: 11/27/17 Primary Care Provider: Dr. Olson Chief Complaint: Cavitary pneumonia Subjective: Improving Physical Examination - Vital Signs Temperature: 98.4 F Blood Pressure: 111/60 Pulse: 63 Respirations: 16 Pulse Ox (%): 93 - Physical Exam General: Alert, In no apparent distress, Oriented x3, Cooperative HEENT: Atraumatic Neck: Supple Respiratory: Crackles/rales (right side) Cardiovascular: Normal pulses, Regular rate/rhythm Gastrointestinal: Normal bowel sounds, Soft and benign, Non-distended, No rebound, No guarding Musculoskeletal: No erythema, No tenderness, No warmth Integumentary: No tenderness/swelling, No erythema, No warmth, No cyanosis Neurological: Normal speech, Normal strength at 5/5 x4 extr, Normal tone, Normal affect - Studies Medications List Reviewed: Yes Assessment & Plan - Problems (Diagnosis) (1) Pulmonary embolism Current Visit: Yes Status: Chronic Plan: Patient recently diagnosed with pulmonary embolism in early November to the right upper lung field. Will continue anti coagulation therapy. Will discuss with pulmonology about pneumonia to the upper area. Spoke with Radiology today. They wanted to repeat CT scan to rule out pneumothorax. Await results. Will discuss with pulmonology. Qualifiers: Chronicity: chronic Acute cor pulmonale presence: without acute cor pulmonale (2) Chronic anticoagulation Current Visit: Yes Status: Chronic Plan: Continue with anti coagulation therapy for history of pulmonary embolism. (3) Hyperlipidemia Current Visit: Yes Status: Chronic Plan: Will continue with his medication Qualifiers: Hyperlipidemia type: unspecified Qualified Code(s): E78.5 - Hyperlipidemia , unspecified (4) Diabetes mellitus Onset Date: 11/25/17 Current Visit: Yes Status: Chronic Plan: Will check previous A1c. Will continue sliding scale. Qualifiers: Diabetes mellitus type: type 2 Diabetes mellitus joint terminal attack controller insulin use: without joint terminal attack controller use Diabetes mellitus complication status: with other specified complication Qualified Code(s): E11.69 - Type 2 diabetes mellitus with other specified complication (5) Head and neck cancer Onset Date: 11/25/17 Current Visit: Yes Status: Chronic Plan: Followed by Oncology (6) Pneumonia Onset Date: 11/25/17 Current Visit: Yes Status: Acute Plan: Right upper cavitary pneumonia noted. Case discussed with radiology. Radiology recommended repeat CT scan to evaluate for possible pneumothorax. Will continue with current plan of care. Patient being evaluated for tuberculosis. Will discuss further with pulmonology Qualifiers: Pneumonia type: due to unspecified organism Laterality: right Lung location: upper lobe of lung Qualified Code(s): J18.1 - Lobar pneumonia, unspecified organism (7) Anemia Onset Date: 01/23/15 Current Visit: No Status: Chronic Plan: Mild. Will monitor closely. Qualifiers: Anemia type: other cause Other causes of anemia: chronic disease, other Qualified Code(s): D63.8 - Anemia in other chronic diseases classified elsewhere (8) COPD (chronic obstructive pulmonary disease) Onset Date: 01/10/15 Current Visit: No Status: Acute Plan: Patient with mild COPD exacerbation. Will continue with medication. Maintain sats above 90%. Qualifiers: COPD type: COPD with acute exacerbation Qualified Code(s): J44.1 - Chronic obstructive pulmonary disease with (acute) exacerbation (9) Hypertension Current Visit: Yes Status: Chronic Plan: Medication restarted. Will monitor and adjust appropriately. Qualifiers: Hypertension type: essential hypertension Qualified Code(s): I10 - Essential (primary) hypertension Discharge Plan: Home Plan to discharge in: 48 Hours Time Spent Managing Pts Care (In Minutes): 55
--- NOTE | 2017-11-27 13:05 | RAD REPORT ---
EXAM DESCRIPTION: CT - Thorax W/ Con - 11/27/2017 12:44 pm CLINICAL HISTORY: Abnormal chest film, pneumonia, possible tuberculosis COMPARISON: Portable chest November 27, CT chest November 24 TECHNIQUE: Dynamically enhanced 5 mm thick images of the chest were obtained during administration o f 100 mL non-ionic IV contrast. All CT scans are performed using dose optimization technique as appropriate and may include automated exposure control or mA/KV adjustment according to patient size. FINDINGS: Small right pleural effusion has developed since the prior examination. Left lung field re keerthi clear. Minimal atelectasis in the right lower lobe. Right middle lobe is clear. Dense airspace consolidation in the right upper lobe has progressed since November 24. Near the apex there is a 5 x 3 c entimeter cavitary component more prominent than prior study. No pneumothorax is present. The chest film finding with skin fold artifact or other summation of norm al structures. No chest wall mass or abnormal axillary lymphadenopathy. No abnormal mediastinal or hilar mass or lymphadenopathy seen. IMPRESSION: Worsening right upper lobe pneumonia with a 5 x 3 centimeter partially fluid-filled cyst ic cavity more prominent than on November 24. No pneumothorax is present. A small right pleural effusion has developed. Klebsiella, Staph aureus or other cavitating pneumonia would be a consideration. Given the patient's prior history, tuberculosis would be a consideration.
[2017-11-27] MEDS: ATENOLOL 50 MG TAB PO SCH (17:20)
[2017-11-27] MEDS: ALBUTEROL 2.5 MG/3 ML NEB SOL NEB PRN (19:38)
[2017-11-27] MEDS: IPRATROPIUM BROM 0.5MG/2.5ML NEB PRN (19:38)
[2017-11-27] MEDS: ATORVASTATIN 20 MG TAB PO SCH (21:56)
[2017-11-28] MEDS: PIPER/TAZO/NS 3.375gm 3.375 GM/100 ML BAG IVPB SCH ×3 (00:55→17:32)
[2017-11-28] MEDS: IPRATROPIUM BROM 0.5MG/2.5ML NEB PRN (03:24)
[2017-11-28] MEDS: ALBUTEROL 2.5 MG/3 ML NEB SOL NEB PRN (03:25)
[2017-11-28] MEDS: PANTOPRAZOLE 40MG TABLET PO SCH (05:46)
[2017-11-28 07:21] LABS: Absolute Monocytes 1.1 K/uL (0.1-1.3); Absolute Neutrophil 10.5 K/uL (1.8-8.0); Basophils % 0.3 % (0-1.3); Eosinophils % 0.2 % (0-4.4); Hematocrit 35.3 % (39.6-49.0); Lymphocytes % 7.9 % (15.3-44.8); MCH 32.7 pg (27.0-35.0); MCV 97.8 fL (80-100); MPV 7.4 fL (7.6-11.3); Monocytes % 8.5 % (3.3-12.3); RBC Red Blood Cell Count 3.61 M/uL (4.33-5.43)
[2017-11-28 08:50] LABS: BUN Blood Urea Nitrogen 11 mg/dL (6-20); Bicarbonate 25 mEq/L (21-31); Glucose Level 100 mg/dL (65-120); Magnesium 1.8 mg/dL (1.8-2.5); Phosphorus 2.9 mg/dL (2.5-4.3); Potassium 4.2 mEq/L (3.6-5.0); Sodium Level 133 mEq/L (135-145)
--- NOTE | 2017-11-28 08:56 | RAD REPORT ---
EXAM DESCRIPTION: RAD - Chest Single View - 11/28/2017 6:46 am CLINICAL HISTORY: Pneumonia COMPARISON: November 27 CT chest and portable chest TECHNIQUE: AP portable chest image was obtained 0617 hours . FINDINGS: Consolidated pneumonia in the right upper lobe is still present. The cavitary component on CT imaging is difficult to identify on plain film. There has been some clearing of the infiltrate in the inferior aspect of the right upper lobe. Middle lung field is better aerated on the current exam ination. No new or progressive lung parenchymal process elsewhere. Heart and vasculature are normal. No measur able pleural effusion and no pneumothorax. IMPRESSION: Dense consolidation of the right upper lobe with minimal clearing of infiltrate present in the inferior aspect right upper lobe.
[2017-11-28] MEDS: NIFEDIPINE XL 30 MG TABLET PO SCH (10:01)
[2017-11-28] MEDS: FENOFIBRATE 160 MG TAB PO SCH (10:01)
[2017-11-28] MEDS: APIXABAN 5 MG TABLET PO SCH ×2 (10:01→21:25)
[2017-11-28] MEDS: SMZ./TMP. 800/160 MG TABLET PO SCH ×2 (10:01→21:25)
--- NOTE | 2017-11-28 10:19 | P.PN ---
Subjective Date of Service: 11/28/17 Primary Care Provider: Dr. Olson Chief Complaint: Cavitary pneumonia Subjective: Doing well Physical Examination - Vital Signs Temperature: 98.5 F Blood Pressure: 111/52 Pulse: 70 Respirations: 20 Pulse Ox (%): 91 - Physical Exam General: Alert, In no apparent distress, Cooperative HEENT: Atraumatic Neck: Supple Respiratory: Diminished (Decreased to the right side) Cardiovascular: Normal pulses, Regular rate/rhythm Gastrointestinal: Normal bowel sounds, Soft and benign, Non-distended, No tenderness, No masses, No rebound, No guarding Musculoskeletal: No erythema, No tenderness, No warmth Integumentary: No tenderness/swelling, No erythema, No warmth, No cyanosis Neurological: Normal speech, Normal strength at 5/5 x4 extr, Normal tone, Normal affect - Studies Medications List Reviewed: Yes Assessment & Plan - Problems (Diagnosis) (1) Pulmonary embolism Current Visit: Yes Status: Chronic Plan: Patient recently diagnosed with pulmonary embolism in early November to the right upper lung field. Will continue anti coagulation therapy. Case discussed with pulmonology. Patient with cavitary lesion to the right upper lobe. Still need to rule out tuberculosis as the patient has multiple risk factors. Await culture results. If TB is ruled out, Patient may require bronchoscopy. Qualifiers: Chronicity: chronic Acute cor pulmonale presence: without acute cor pulmonale (2) Chronic anticoagulation Current Visit: Yes Status: Chronic Plan: Continue with anti coagulation therapy for history of pulmonary embolism. (3) Hyperlipidemia Current Visit: Yes Status: Chronic Plan: Will continue with his medication Qualifiers: Hyperlipidemia type: unspecified Qualified Code(s): E78.5 - Hyperlipidemia , unspecified (4) Diabetes mellitus Onset Date: 11/25/17 Current Visit: Yes Status: Chronic Plan: Will check A1c. Will continue sliding scale. Qualifiers: Diabetes mellitus type: type 2 Diabetes mellitus superintendent marine oil terminal insulin use: without superintendent marine oil terminal use Diabetes mellitus complication status: with other specified complication Qualified Code(s): E11.69 - Type 2 diabetes mellitus with other specified complication (5) Head and neck cancer Onset Date: 11/25/17 Current Visit: Yes Status: Chronic Plan: Followed by Oncology (6) Pneumonia Onset Date: 11/25/17 Current Visit: Yes Status: Acute Plan: Right upper cavitary pneumonia noted. Case discussed with pulmonology. Will need to rule out tuberculosis due to risk factors. Culture pending. If TB is ruled out, patient will require bronchoscopy. Qualifiers: Pneumonia type: due to unspecified organism Laterality: right Lung location: upper lobe of lung Qualified Code(s): J18.1 - Lobar pneumonia, unspecified organism (7) Anemia Onset Date: 01/23/15 Current Visit: No Status: Chronic Plan: Mild. Will monitor closely. Qualifiers: Anemia type: other cause Other causes of anemia: chronic disease, other Qualified Code(s): D63.8 - Anemia in other chronic diseases classified elsewhere (8) COPD (chronic obstructive pulmonary disease) Onset Date: 01/10/15 Current Visit: No Status: Acute Plan: Patient with mild COPD exacerbation. Will continue with medication. Maintain sats above 90%. Qualifiers: COPD type: COPD with acute exacerbation Qualified Code(s): J44.1 - Chronic obstructive pulmonary disease with (acute) exacerbation (9) Hypertension Current Visit: Yes Status: Chronic Plan: Continued with medication Qualifiers: Hypertension type: essential hypertension Qualified Code(s): I10 - Essential (primary) hypertension Discharge Plan: Home Plan to discharge in: Greater than 2 days Time Spent Managing Pts Care (In Minutes): 55
[2017-11-28 12:32] LABS: A1c Component 0.36 mg/dL; Hemoglobin A1c 4.9 % (4-6.0)
[2017-11-28] MEDS: ARFORMOTEROL TARTRATE 15 MCG/2 ML VIAL.NEB NEB SCH ×2 (13:45→20:10)
[2017-11-28] MEDS ORDERED: MAGNESIUM SULFATE 1 gm IVPB 1 GM/100 ML BAG IV ONE (16:00)
[2017-11-28] MEDS: ATENOLOL 50 MG TAB PO SCH (17:32)
[2017-11-28] MEDS: ATORVASTATIN 20 MG TAB PO SCH (21:25)
[2017-11-29] MEDS: PIPER/TAZO/NS 3.375gm 3.375 GM/100 ML BAG IVPB SCH ×3 (01:14→17:00)
[2017-11-29 04:38] LABS: BUN Blood Urea Nitrogen 11 mg/dL (6-20); Bicarbonate 24 mEq/L (21-31); Glucose Level 95 mg/dL (65-120); Sodium Level 132 mEq/L (135-145)
[2017-11-29] MEDS: PANTOPRAZOLE 40MG TABLET PO SCH (05:32)
--- NOTE | 2017-11-29 08:13 | P.PN ---
Subjective Date of Service: 11/29/17 Primary Care Provider: Dr. Olson Chief Complaint: Cavitary pneumonia Subjective: Doing well (No complaints noted.) Physical Examination - Vital Signs Temperature: 99 F Blood Pressure: 107/57 Pulse: 57 Respirations: 20 Pulse Ox (%): 93 - Physical Exam General: Alert, In no apparent distress, Cooperative HEENT: Atraumatic Neck: Supple Respiratory: Clear to auscultation bilaterally, Normal air movement Cardiovascular: Normal pulses, Regular rate/rhythm Gastrointestinal: Normal bowel sounds, Soft and benign, No tenderness, No masses , No rebound, No guarding Musculoskeletal: No erythema, No tenderness, No warmth Integumentary: No tenderness/swelling, No erythema, No warmth, No cyanosis Neurological: Normal speech, Normal strength at 5/5 x4 extr, Normal tone, Normal affect Lymphatics: No axilla or inguinal lymphadenopathy - Studies Medications List Reviewed: Yes Assessment & Plan - Problems (Diagnosis) (1) Pulmonary embolism Current Visit: Yes Status: Chronic Plan: Patient recently diagnosed with pulmonary embolism in early November to the right upper lung field. Will continue anti coagulation therapy. Case discussed with pulmonology. Patient with cavitary lesion to the right upper lobe. Still waiting on cultures to rule out tuberculosis. If negative patient will require bronchoscopy. This was discuss with patient and family yesterday. Qualifiers: Chronicity: chronic Acute cor pulmonale presence: without acute cor pulmonale (2) Chronic anticoagulation Current Visit: Yes Status: Chronic Plan: Continue with anti coagulation therapy for history of pulmonary embolism. (3) Hyperlipidemia Current Visit: Yes Status: Chronic Plan: Will continue with his medication Qualifiers: Hyperlipidemia type: unspecified Qualified Code(s): E78.5 - Hyperlipidemia , unspecified (4) Head and neck cancer Onset Date: 11/25/17 Current Visit: Yes Status: Chronic Plan: Followed by Oncology (5) Pneumonia Onset Date: 11/25/17 Current Visit: Yes Status: Acute Plan: Right upper cavitary pneumonia noted. Case discussed with pulmonology. Will need to rule out tuberculosis due to risk factors. Culture pending. If TB is ruled out, patient will require bronchoscopy. Qualifiers: Pneumonia type: due to unspecified organism Laterality: right Lung location: upper lobe of lung Qualified Code(s): J18.1 - Lobar pneumonia, unspecified organism (6) Anemia Onset Date: 01/23/15 Current Visit: No Status: Chronic Plan: Mild. Will monitor closely. Qualifiers: Anemia type: other cause Other causes of anemia: chronic disease, other Qualified Code(s): D63.8 - Anemia in other chronic diseases classified elsewhere (7) COPD (chronic obstructive pulmonary disease) Onset Date: 01/10/15 Current Visit: No Status: Acute Plan: Patient with mild COPD exacerbation. Will continue with medication. Maintain sats above 90%. Qualifiers: COPD type: COPD with acute exacerbation Qualified Code(s): J44.1 - Chronic obstructive pulmonary disease with (acute) exacerbation (8) Hypertension Current Visit: Yes Status: Chronic Plan: Continued with medication Qualifiers: Hypertension type: essential hypertension Qualified Code(s): I10 - Essential (primary) hypertension Discharge Plan: Home Plan to discharge in: 24 Hours Time Spent Managing Pts Care (In Minutes): 55
[2017-11-29] MEDS: ARFORMOTEROL TARTRATE 15 MCG/2 ML VIAL.NEB NEB SCH (09:03)
[2017-11-29 09:21] VITALS: O2SAT 92
[2017-11-29] MEDS: SMZ./TMP. 800/160 MG TABLET PO SCH (10:11)
[2017-11-29] MEDS: APIXABAN 5 MG TABLET PO SCH (10:11)
[2017-11-29] MEDS: NIFEDIPINE XL 30 MG TABLET PO SCH (10:11)
[2017-11-29] MEDS: FENOFIBRATE 160 MG TAB PO SCH (10:11)
--- NOTE | 2017-11-29 17:30 | P.DS ---
Admission Date: 11/24/17 Discharge Date: 11/29/17 Primary Care Provider: Dr. Olson Disposition: ROUTINE DISCHARGE Discharge Condition: GOOD Reason for Admission: Cavitary pneumonia Consultations: Pulmonary-Dr. Granado Procedures: CT scan: 11/24/2017 FINDINGS: An 8 centimeter right upper lobe consolidation is present. It contains a cavity. Mild additional patchy alveolar right upper lobe opacities seen. The left lung is clear. Calcified mediastinal and calcified hilar lymph nodes are noted. A pleural effusion is not present. A pericardial effusion is not seen. IMPRESSION: 8 centimeter right upper lobe consolidation containing cavity probably representing bacterial pneumonia. Two possibilities include streptococcus and Klebsiella. Otherconsiderations include TB, fungus an neoplasm. This should be followed until it is clear to help exclude a post obstructive process/underlying mass Repeat CT scan: 11/27/2017 FINDINGS: Small right pleural effusion has developed since the prior examination. Left lung field remains clear. Minimal atelectasis in the right lower lobe. Right middle lobe is clear. Dense airspace consolidation in the right upper lobe has progressed since November 24. Near the apex there is a 5 x 3 centimeter cavitary component more prominent than prior study. No pneumothorax is present. The chest film finding with skin fold artifact or other summation of normal structures. No chest wall mass or abnormal axillary lymphadenopathy. No abnormal mediastinal or hilar mass or lymphadenopathy seen. IMPRESSION: Worsening right upper lobe pneumonia with a 5 x 3 centimeter partially fluid-filled cystic cavity more prominent than on November 24. No pneumothorax is present. A small right pleural effusion has developed. Klebsiella, Staph aureus or other cavitating pneumonia would be a consideration. Given the patient's prior history, tuberculosis would be a consideration. - Problems (1) Pulmonary embolism Current Visit: Yes Status: Chronic Qualifiers: Chronicity: chronic Acute cor pulmonale presence: without acute cor pulmonale (2) Chronic anticoagulation Current Visit: Yes Status: Chronic (3) Hyperlipidemia Current Visit: Yes Status: Chronic Qualifiers: Hyperlipidemia type: unspecified Qualified Code(s): E78.5 - Hyperlipidemia , unspecified (4) Head and neck cancer Onset Date: 11/25/17 Current Visit: Yes Status: Chronic (5) Pneumonia Onset Date: 11/25/17 Current Visit: Yes Status: Acute Qualifiers: Pneumonia type: due to unspecified organism Laterality: right Lung location: upper lobe of lung Qualified Code(s): J18.1 - Lobar pneumonia, unspecified organism (6) Anemia Onset Date: 01/23/15 Current Visit: No Status: Chronic Qualifiers: Anemia type: other cause Other causes of anemia: chronic disease, other Qualified Code(s): D63.8 - Anemia in other chronic diseases classified elsewhere (7) COPD (chronic obstructive pulmonary disease) Onset Date: 01/10/15 Current Visit: No Status: Acute Qualifiers: COPD type: COPD with acute exacerbation Qualified Code(s): J44.1 - Chronic obstructive pulmonary disease with (acute) exacerbation (8) Hypertension Current Visit: Yes Status: Chronic Qualifiers: Hypertension type: essential hypertension Qualified Code(s): I10 - Essential (primary) hypertension (9) GERD (gastroesophageal reflux disease) Current Visit: Yes Status: Chronic Qualifiers: Esophagitis presence: esophagitis presence not specified Qualified Code(s) : K21.9 - Gastro-esophageal reflux disease without esophagitis (10) Diabetes mellitus Current Visit: Yes Status: Chronic Qualifiers: Diabetes mellitus type: type 2 Diabetes mellitus group home insulin use: without group home use Diabetes mellitus complication status: with other specified complication Qualified Code(s): E11.69 - Type 2 diabetes mellitus with other specified complication Brief History of Present Illness: 77-year-old male presented emergency room with cough, congestion. Patient was evaluated emergency room. X-ray showed pneumonia to the right upper lobe. CT scan showed a large right upper lobe consolidation containing a cavity. Patient was admitted for treatment. Hospital Course: During the course of his stay the patient was put in isolation for possible TB evaluation due to the abnormal CT scan. Patient was seen by pulmonology. AFB cultures were sent. Repeat CT scan showed worsening right upper lobe pneumonia with a 5 x 3 cm partially fluid-filled cystic cavity. No pneumothorax was noted. The patient did well during the course of his stay. AFB stain was negative. AFB cultures were pending. Patient desired to leave without waiting on culture results of the AFB. Risks and benefits were addressed in detail. The patient still requested to be discharge. Prior to discharge I was able to get in contact with his oncologist at [facility]. I discussed the case in detail with his oncologist-Dr. eRid and pulmonology. After long discussion, it was determined that the patient can be safely discharged. The patient will follow up with oncology this week. Prior to discharge a QuantiFERON gold test will be obtained. The patient is high risk for aspiration therefore at discharge patient will continue with Augmentin 875 mg 1 pill twice daily for 7 days. Tuberculosis still needs to be ruled out. Therefore patient will need to continue with N95 mask. At discharge patient will need to follow up with oncology. Oncology plans to refer the patient to pulmonology and infectious disease. Patient will need bronchoscopy to further evaluate. Differential includes recurrent cancer, anaerobic bacteria infection, and tuberculosis. Oncology plans to follow up on QuantiFERON gold tests, AFB cultures and CT scan. Prior to discharge the plan of care was discussed with the patient in detail including family. All are in agreement with the plan of care. Patient with history of pulmonary embolism. Patient will continue with chronic anti coagulation therapy-Eliquis 5 mg 1 pill twice daily. Patient with history of COPD. Patient will continue with his medication-Advair 1 puff twice daily and Combivent 1 puff 3 times a day as needed for shortness of breath. Patient has home oxygen. He will maintain oxygen to maintain sats above 90%. Patient is hypertension. Patient will continue with atenolol 100 mg daily and nifedipine 30 mg daily. Recommendation is to maintain blood pressures less 150/ 80. Further adjustment can be done by his PCP. Patient has GERD. Patient continue with Protonix 40 mg 1 pill once daily. Patient has hyperlipidemia. Patient will continue with fenofibrate 160 mg daily. Patient has history of diabetes. He will continue with glipizide 5 mg daily. Recommendation is to maintain BS less than 140 fasting and less than 200 after eating. Patient may need to hold glipizide if blood sugar less that 80. Patient has history of head and neck cancer. Patient will follow up with oncology as directed above. Patient is at risk for aspiration. Aspiration precautions will need to be enforced. Vital Signs/Physical Exam: Temp Pulse Resp BP Pulse Ox 99.0 F 62 20 113/61 94 11/29/17 11:57 11/29/17 11:57 11/29/17 11:57 11/29/17 11:57 11/29/17 11:57 General: Alert, In no apparent distress, Oriented x3, Cooperative HEENT: Atraumatic Neck: Supple Respiratory: Clear to auscultation bilaterally, Normal air movement Cardiovascular: Normal pulses, Regular rate/rhythm Gastrointestinal: Normal bowel sounds, Soft and benign, Non-distended, No tenderness, No masses, No rebound, No guarding Musculoskeletal: No erythema, No tenderness, No warmth Integumentary: No tenderness/swelling, No erythema, No warmth, No cyanosis Neurological: Normal speech, Normal strength at 5/5 x4 extr, Normal tone, Normal affect Lymphatics: No axilla or inguinal lymphadenopathy Laboratory Data at Discharge: WBC 12.6 K/uL (4.3-10.9) H D 11/28/17 07:04 Hgb 11.8 g/dL (13.6-17.9) L 11/28/17 07:04 Hct 35.3 % (39.6-49.0) L 11/28/17 07:04 Plt Count 418 K/uL (152-406) H 11/28/17 07:04 PT 20.4 SECONDS (9.5-12.5) H 11/24/17 18:05 INR 1.72 11/24/17 18:05 APTT 38.6 SECONDS (24.3-36.9) H 11/24/17 18:05 Sodium 132 mEq/L (135-145) L 11/29/17 03:33 Potassium 4.0 mEq/L (3.6-5.0) 11/29/17 03:33 BUN 11 mg/dL (6-20) 11/29/17 03:33 Creatinine 0.71 mg/dL (0.61-1.24) 11/29/17 03:33 Glucose 95 mg/dL (65-120) 11/29/17 03:33 Phosphorus 2.9 mg/dL (2.5-4.3) 11/28/17 07:04 Magnesium 2.0 mg/dL (1.8-2.5) 11/29/17 03:33 Total Bilirubin 1.0 mg/dL (0.3-1.2) 11/24/17 18:05 AST 23 IU/L (10-42) 11/24/17 18:05 ALT 17 IU/L (10-60) 11/24/17 18:05 Alkaline Phosphatase 180 IU/L (42-121) H 11/24/17 18:05 B-Natriuretic Peptide 74 pg/ml (<=100) 11/24/17 19:20 Triglycerides 70 mg/dL (35-160) 11/25/17 04:10 Cholesterol 87 mg/dL (<200) 11/25/17 04:10 HDL Cholesterol 28 mg/dL (27-67) 11/25/17 04:10 Cholesterol/HDL Ratio 3.11 11/25/17 04:10 Home Medications: Aspirin 81 mg PO DAILY 01/10/14 Fluticasone/Salmeterol [Advair 250/50 Diskus*] 1 puff IH BID 01/10/14 Ipratropium/Albuterol Sulfate [Combivent Respimat Inhal [place]] 4 gm IH Q4H PRN 01/10/14 Simvastatin [Zocor*] 40 mg PO BEDTIME 01/10/14 Garlic [Odor Free Garlic] 1 tab PO DAILY 08/27/14 Glipizide S.a. [Glucotrol Xl*] 5 mg PO BREAKFAST #30 tab 08/29/14 Atenolol [Tenormin] 100 mg PO DAILY AFTER SUPPER 09/23/14 Pantoprazole [Protonix Tab*] 40 mg PO DAILY #30 tab 01/11/15 Apixaban [Eliquis] 5 mg PO BID 11/26/17 Fenofibrate 160 mg PO DAILY 11/26/17 Nifedipine [Nifedipine ER] 30 mg PO DAILY 11/26/17 Amoxicillin/Potassium Clav [Augmentin 875-125 Tablet] 1 each PO BID #14 tablet 11/29/17 New Medications: Amoxicillin/Potassium Clav [Augmentin 875-125 Tablet] 1 each PO BID #14 tablet Patient Discharge Instructions: 1. Patient will need to follow up with his PCP in 1 week to follow up this hospitalization. 2. Patient presented with shortness of breath. Patient found to have abnormal CT scan showing large right upper lobe consolidation with cavitary lesion. At discharge patient will continue with Augmentin 875 mg 1 pill twice daily for 7 days. Recommendations for the patient to follow up with oncology this week to further evaluate and address. AFB culture, QuantiFERON gold test pending at discharge. This can be followed up by oncology. Recommendation is for the patient to see Pulmonology and Infectious Disease in outpatient to further evaluate. Patient recommended to use N95 mask until this can be further assessed and tuberculosis is ruled out. 3. Patient has COPD. Patient will continue with his medication Advair 1 puff twice daily and Combivent 1 puff 3 times a day as needed for shortness of breath. Patient has home oxygen. He is to maintain sats above 90%. 4. Patient has hypertension. Patient will continue with atenolol 100 mg daily and nifedipine 30 mg 1 pill daily. Recommendation is to maintain blood pressures less 150/80. Further adjustment can be done by his PCP. 5. Patient has GERD. Patient will continue with Protonix 40 mg 1 pill once daily. 6. Patient has diabetes. Patient will continue with glipizide 5 mg daily. Recommendation is to maintain blood sugars less 140 fasting and less than 200 after meals. Further adjustment can be done by his PCP. 7. Patient has hyperlipidemia. Patient will continue with fenofibrate 160 mg daily. 8. Patient has history of pulmonary embolism. Patient on chronic anti coagulation therapy. Patient continue with Eliquis 5 mg 1 pill twice daily. 9. Patient with history of head and neck cancer. Patient will follow up with oncology this week to further evaluate. Diet: AHA Activity: Ad amy Time spent managing pt's care (in minutes): 55
[2017-11-29] MEDS: ATENOLOL 50 MG TAB PO SCH (18:34)
[2017-11-29 18:36] VITALS: BP 152/76; TEMP 98.2
--- NOTE | 2017-12-05 07:48 | P.PN ---
Subjective Date of Service: 11/25/17 Patient is clinically doing well. However, he was moved to isolation by Pulmonary to reassess his cavitary lesion. At this time will continue to monitor him and keep him on IV antibiotics. Review of Systems 10-point ROS is otherwise unremarkable Physical Examination - Vital Signs Temperature: 98.2 F Blood Pressure: 152/76 Pulse: 61 Respirations: 18 Pulse Ox (%): 96 - Physical Exam General: Alert, In no apparent distress, Oriented x2 HEENT: Atraumatic, PERRLA, EOMI Neck: Supple, JVD not distended Respiratory: Rhonchi/gurgles Cardiovascular: Regular rate/rhythm, Normal S1 S2, No rubs, No murmurs Gastrointestinal: Normal bowel sounds, Soft and benign, Non-distended, No tenderness Musculoskeletal: No tenderness Integumentary: No rashes Neurological: Normal speech, Normal tone, Normal affect Lymphatics: No axilla or inguinal lymphadenopathy - Studies Medications List Reviewed: Yes Assessment & Plan - Problems (Diagnosis) (1) Head and neck cancer Onset Date: 11/25/17 Status: Chronic (2) Postobstructive pneumonia Status: Acute (3) CAD (coronary artery disease), autologous vein bypass graft Onset Date: 11/25/17 Status: Deleted (4) COPD exacerbation Onset Date: 11/25/17 Status: Acute (5) Diabetes mellitus Onset Date: 11/25/17 Status: Deleted Qualifiers: Diabetes mellitus type: type 2 Diabetes mellitus snf insulin use: without pediatric sports medicine specialist use Diabetes mellitus complication status: with other specified complication Qualified Code(s): E11.69 - Type 2 diabetes mellitus with other specified complication (6) Pancreatitis Onset Date: 11/25/17 Status: Acute - Plan Continue with current plan of care as mentioned below: 1. Continue with IV antibiotics 2. Awaiting sputum and blood culture 3. Repeat chest x-ray 4. placed on isolation for cavitary pneumonia 5. Pulmonary consultation 6. Continue with nebs as needed 7. O2 per protocol 8. Continue with gentle hydration 9. Repeat labs including CBC and renal function in a.m. 10. Strict blood sugar control 11. GI and DVT prophylaxis - Advance Directives Does patient have a Living Will: No Does patient have a Durable POA for Healthcare: Yes - Code Status/Comfort Care Code Status: Full Code
== END 2017-11-29 19:03 | disposition home or self-care (01) | DRG 190 ==
LOC: ER 16:35 → ERHOLD 17:57 → UNDOADMIN 17:57 → 4TH 17:57
PROVIDERS: ADMIT Family Medicine; ATTEND Hospitalist
DX: J44.1 Chronic obstructive pulmonary disease with (acute) exacerbation (principal); J18.9 Pneumonia, unspecified organism; A15.0 Tuberculosis of lung; J44.0 Chronic obstructive pulmonary disease with (acute) lower respiratory infection; E11.9 Type 2 diabetes mellitus without complications; I25.10 Atherosclerotic heart disease of native coronary artery without angina pectoris; E78.5 Hyperlipidemia, unspecified; G25.81 Restless legs syndrome; Z85.89 Personal history of malignant neoplasm of other organs and systems; Z95.5 Presence of coronary angioplasty implant and graft; Z95.1 Presence of aortocoronary bypass graft; Z79.01 Long term (current) use of anticoagulants; D64.9 Anemia, unspecified; I10 Essential (primary) hypertension; K21.9 Gastro-esophageal reflux disease without esophagitis; Z86.711 Personal history of pulmonary embolism; F17.210 Nicotine dependence, cigarettes, uncomplicated
CPT/HCPCS: 36415; 71045; 71260; 80048; 80061; 80076; 81003; 83036; 83605; 83735; 83880; 84100; 84145; 84484; 85025; 85610; 85730; 87015; 87040; 87070; 87116; 87205; 87206; 93005; 94760; 96365; 96366; 99285; J0456; J0696; J1650; J2543; J3370; J3475; J7030; J7605; Q9967

== ENCOUNTER 2018-06-20 20:23 | Inpatient (IN) | payer OTHER ==
--- OUTSIDE RECORDS SUMMARY | 2018-06-20 20:25 | XMS REPORT | Clinical Summary ---
:1940 [facility] [address] [place] [address] Care Team Providers Name Role Phone Ronal Olson MD Primary Care Provider Allergies Not on File Medications Not on file Active Problems Not on file Social History Tobacco Use Types Packs/Day Years Used Date Never Assessed Sex Assigned at Date Recorded Not on file Job Start Date Occupation Industry Not on file Not on file Not on file Travel History Travel Start Travel End No recent travel history available. Last Filed Vital Signs Not on file Plan of Treatment Health Maintenance Due Date Last Done Comments SHINGLES VACCINES (1 of 2) 1991 PNEUMOCOCCAL POLYSACCHARIDE VACCINE AGE 65 AND OVER 2006 PNEUMOCOCCAL-13 2006 INFLUENZA VACCINE 02/01/2018 Results Not on fileafter 06/19/2017 Insurance Payer Benefit Plan / Group Subscriber ID Type Phone Address MEDICARE MEDICARE PART A AND B xxxxxxxxxx Medicare [place], [place] (Home) [address] [place] [id number] Advance Directives Patient has advance care planning documents on file. For more information, please contact:[facility] [place] [address]
[2018-06-20] MEDS ORDERED: NA CHLORIDE 0.9% 500 ML ONE (20:58)
--- NOTE | 2018-06-20 21:44 | RAD REPORT ---
EXAM DESCRIPTION: CT - Head Brain Wo Cont - 06/20/2018 9:22 pm CLINICAL HISTORY: Respiratory distress, syncope COMPARISON: None. TECHNIQUE: Axial 5 mm thick images of the head were obtained without IV contrast. All CT scans are performed using dose optimization technique as appropriate and may include automated exposure control or mA/KV adjustment according to patient size. FINDINGS: No intracranial hemorrhage, mass, edema or shift of mid-line structures. No acute infarcti on changes seen. Moderate atrophy and chronic ischemic changes are present. Ventricles are in proport ion to volume loss. Arterial calcifications are present. Mastoid air cells and visualized portions of the paranasal sinuses are clear. No acute bony findings. IMPRESSION: Moderate atrophy and chronic ischemic change. No acute intracranial finding. Chronic ischemic changes can mask nonhemorrhagic acute infarction. MR brain followup can be obtained if there is ongoing concern for acute ischemia.
[2018-06-20 22:53] LABS: ALT/SGPT 12 U/L (12-78); AST/SGOT 17 U/L (15-37); Albumin 3.7 g/dL (3.4-5.0); Alkaline Phosphatase 61 U/L (45-117); BUN Blood Urea Nitrogen 10 mg/dL (7-18); Bicarbonate 26 mmol/L (21-32); Bilirubin Direct 0.2 mg/dL (0-0.2); Bilirubin Total 0.5 mg/dL (0.2-1.0); Glucose Level 68 mg/dL (74-106); Lipase 142 U/L (73-393); Magnesium 2.3 mg/dL (1.8-2.4); Protein, Total 7.3 g/dL (6.4-8.2); Sodium Level 137 mmol/L (136-145); Troponin (Emerg Dept Use Only) < 0.02 ng/mL (0.0-0.045)
--- NOTE | 2018-06-21 01:28 | ER ---
Nurse's Notes [facility] Name: Meño Penn Age: 78 yrs Sex: Male : 1940 Arrival Date: 06/20/2018 Time: 20:24 Bed 7 Private MD: Diagnosis: Syncope and collapse;Bradycardia, unspecified;Hypothermia Presentation: 06/20 20:30 Presenting complaint: EMS states: they were toned out for pt in respiratory distress bb with syncope on their arrival pt's BP was 72/46, HR 30s they initiated IVs and gave 1 mg Atropine, lactated ringers, and gave Zofran 4 mg. Transition of care: patient was not received from another setting of care. Onset of symptoms was June 20, 2018. Risk Assessment: Do you want to hurt yourself or someone else? Patient reports no desire to harm self or others. Initial Sepsis Screen: Does the patient meet any 2 criteria? No. Patient's initial sepsis screen is negative. Does the patient have a suspected source of infection? No. Patient's initial sepsis screen is negative. Care prior to arrival: Medication(s) given: Atropine 1 mg, Zofran 4 mg, LR 350 mLs IV initiated. 20 GA, in the right chest and 20 g in L AC Glucose check: 142. 20:30 Method Of Arrival: EMS: [facility] bb 20:30 Acuity: DANAY 2 bb Historical: - Allergies: 20:34 nyacin; bb - Home Meds: 06/21 01:40 nifedipine 30 mg Oral tr24 1 tab once daily [Active]; pantoprazole 40 mg oral TbEC 1 bb tab once daily [Active]; simvastatin 40 mg Oral tab 1 tab once daily [Active]; Ventolin Nebulizer [Active]; atenolol 100 mg Oral tab [Active]; fenofibrate oral oral [Active]; glipizide 5 mg Oral tab 1 tab once daily [Active]; - PMHx: 06/20 20:34 COPD; Diabetes - NIDDM; Hypertension; bb - PSHx: 20:34 Heart Surgery; neck [id number]; intestinal surgery - non-specific; bb - Immunization history:: Adult Immunizations not up to date. - Social history:: Smoking status: Patient uses tobacco products, unknown amount Patient uses alcohol. - Ebola Screening: : No symptoms or risks identified at this time. - Family history:: not pertinent. - Hospitalizations: : No recent hospitalization is reported. Screenin:35 Abuse screen: Denies threats or abuse. Nutritional screening: No deficits noted. jd3 Tuberculosis screening: No symptoms or risk factors identified. Fall Risk IV access (20 points). Ambulatory Aid- Crutches/Cane/Walker (15 pts). Gait- Weak (10 pts.). Mental Status- Oriented to own ability (0 pts). Total Ellis Fall Scale indicates High Risk Score (45 or more points). Fall prevention measures have been instituted. Side Rails Up X 2 Placed Close to Nursing Station Frequent Obs/Assessments Occuring. Assessment: 20:32 General: Appears uncomfortable, Behavior is calm, cooperative, appropriate for age, jd3 Reports can not see out of right eye. Pain: Complains of pain in right eye Quality of pain is described as aching. Neuro: Level of Consciousness is awake, alert, obeys commands, Oriented to person, place, time, situation. Cardiovascular: Heart tones S1 S2 present Capillary refill < 3 seconds Patient's skin is warm and dry. Respiratory: Reports shortness of breath Airway is patent Respiratory effort is even, unlabored, Respiratory pattern is regular, symmetrical, Breath sounds are diminished bilaterally. GI: No signs and/or symptoms were reported involving the gastrointestinal system. : No signs and/or symptoms were reported regarding the genitourinary system. EENT: Reports pain and unable to see out of right eye.. Derm: Skin is intact, Skin is dry, Skin is normal, Skin temperature is warm. Musculoskeletal: Circulation, motion, and sensation intact. Range of motion: intact in all extremities. 22:14 Reassessment: Patient appears in no apparent distress at this time. No changes from jd3 previously documented assessment. Patient and/or family updated on plan of care and expected duration. Pain level reassessed. Patient is alert, oriented x 3, equal unlabored respirations, skin warm/dry/pink. 23:32 Reassessment: Patient appears in no apparent distress at this time. No changes from jd3 previously documented assessment. Patient and/or family updated on plan of care and expected duration. Pain level reassessed. Patient is alert, oriented x 3, equal unlabored respirations, skin warm/dry/pink. 06/21 00:38 Reassessment: Patient appears in no apparent distress at this time. No changes from jd3 previously documented assessment. Patient and/or family updated on plan of care and expected duration. Pain level reassessed. Patient is alert, oriented x 3, equal unlabored respirations, skin warm/dry/pink. 01:21 Reassessment: No changes from previously documented assessment. Patient and/or family jd3 updated on plan of care and expected duration. Pain level reassessed. Patient is alert, oriented x 3, equal unlabored respirations, skin warm/dry/pink. 02:15 Reassessment: Patient appears in no apparent distress at this time. Patient and/or jd3 family updated on plan of care and expected duration. Pain level reassessed. Patient is alert, oriented x 3, equal unlabored respirations, skin warm/dry/pink. 03:13 Reassessment: Patient appears in no apparent distress at this time. Patient and/or jd3 family updated on plan of care and expected duration. Pain level reassessed. Patient is alert, oriented x 3, equal unlabored respirations, skin warm/dry/pink. Vital Signs: 06/20 20:34 BP 118 / 64; Pulse 51; Resp 18 S; Temp 95.6(TE); Pulse Ox 94% on R/A; Weight 69.85 kg bb (R); Height 5 ft. 10 in. (177.80 cm) (R); 22:14 BP 145 / 71; Pulse 51; Resp 18 S; Pulse Ox 97% on R/A; jd3 23:32 BP 167 / 74; Pulse 43; Resp 17 S; Pulse Ox 96% on R/A; jd3 06/21 00:38 BP 188 / 95; Pulse 42; Resp 17 S; Pulse Ox 97% on R/A; jd3 01:22 BP 155 / 75; Pulse 45; Resp 18 S; Pulse Ox 94% on R/A; jd3 01:47 BP 154 / 78; Pulse 57; Resp 18 S; Pulse Ox 97% on R/A; jd3 03:08 BP 157 / 84; Pulse 46; Resp 15 S; Pulse Ox 97% on R/A; jd3 06/20 20:34 Body Mass Index 22.10 (69.85 kg, 177.80 cm) ED Course: 06/20 20:24 Patient arrived in ED. am2 20:26 John Chaudhry MD is Attending Physician. rn 20:32 Martin Santiago, SAMAN is Primary Nurse. jd3 20:33 Triage completed. bb 20:34 Arm band placed on Patient placed in an exam room, on a stretcher, on pvc monitor, bb on pulse oximetry. 20:36 Patient has correct armband on for positive identification. Placed in gown. Bed in low jd3 position. Call light in reach. Side rails up X2. Adult w/ patient. 20:45 Radiology exam delayed due to pt getting blood drawn at this time. vm2 21:[address] vm2 21:22 CT completed. Patient tolerated procedure well. Patient moved back from CT. nj 21:22 CT Head Brain wo Cont In Process Unspecified. EDMS 22:27 Lactate Sent. ds4 22:27 Blood Culture Adult (2) Sent. ds4 22:27 Missed attempt(s): 22 gauge in right forearm. Bleeding controlled, band aid applied, ds4 catheter tip intact. 22:29 XRAY Chest (1 view) In Process Unspecified. EDMS 23:05 Procalcitonin Sent. ds4 23:05 ETOH Level Sent. ds4 23:06 CBC with Diff Sent. ds4 23:06 Protime (+inr) Sent. ds4 23:06 Ptt, Activated Sent. ds4 23:50 CT completed. Patient tolerated procedure well. Patient moved back from CT. mw3 06/21 00:28 CT Chest For PE Angio In Process Unspecified. EDMS 01:27 Karina Mendoza MD is Hospitalizing Provider. rn 03:14 No provider procedures requiring assistance completed. Patient admitted, IV remains in jd3 place. Administered Medications: 06/20 20:51 Drug: NS 0.9% 500 ml Route: IV; Rate: bolus; Site: left antecubital; jd3 21:50 Follow up: Response: No adverse reaction; IV Status: Completed infusion jd3 06/21 01:44 Drug: Atropine 0.5 mg Route: IVP; Site: left antecubital; jd3 03:15 Follow up: Response: No adverse reaction jd3 01:58 Drug: Rocephin - (cefTRIAXone) 1 grams Route: IVPB; Infused Over: 30 mins; Site: left jd3 antecubital; 03:16 Follow up: Response: No adverse reaction; IV Status: Completed infusion jd3 01:58 Drug: Zithromax 500 mg Route: IVPB; Infused Over: 1 hrs; Site: left antecubital; jd3 03:16 Follow up: Response: No adverse reaction; IV Status: Completed infusion jd3 01:58 Drug: Lovenox 70 mg Route: Sub-Q; Site: abdomen; jd3 03:17 Follow up: Response: No adverse reaction jd3 Outcome: 01:27 Decision to Hospitalize by Provider. rn 03:14 Admitted to ICU accompanied by nurse, accompanied by tech, via stretcher, room 1, on jd3 monitor, with chart, Report called to Kym DAVISON 03:14 Condition: stable 03:14 Instructed on the need for admit, Demonstrated understanding of instructions. 03:15 Patient left the ED. jd3 Signatures: Dispatcher [employer] Liat Sharif RN RN John Abdi MD MD rn Swanson, Donovan ds4 Enrrique Cid Amanda am2 McGuire, Victoria 2 Maritn Santiago RN RN jd3 Yaima Diana mw3 Corrections: (The following items were deleted from the chart) 06/20 20:45 20:[address] 2 2 06/21 01:46 01:45 Atropine 0.5 mg IVP in left antecubital jd3 jd3
--- NOTE | 2018-06-21 01:28 | EDPHYS ---
Physician Documentation [facility] Name: Meño Penn Age: 78 yrs Sex: Male : 1940 Arrival Date: 06/20/2018 Time: 20:24 Bed 7 Private MD: ED Physician John Chaudhry HPI: 06/20 21:08 This 78 yrs old Male presents to ER via EMS with complaints of syncope, Blood rn Pressure Problem. 21:08 The patient has experienced syncope. Onset: The symptoms/episode began/occurred just rn prior to arrival. Duration: This was a single episode. Associated injury: The patient did not suffer any apparent associated injury. Current symptoms: Currently, the patient is not experiencing any symptoms. It is unknown whether or not the patient has had similar symptoms in the past. Per EMS, patient had syncopal episode at home, respiratory distress, low BP and low heart rate, given zofran/LR/atropine, and improved, now patient reports slight headache and decreased vision of right eye, patient states happened earlier today, thinks around 4PM. No other neurological problems or complaints. . Historical: - Allergies: 20:34 nyacin; bb - Home Meds: 06/21 01:40 nifedipine 30 mg Oral tr24 1 tab once daily [Active]; pantoprazole 40 mg oral TbEC 1 bb tab once daily [Active]; simvastatin 40 mg Oral tab 1 tab once daily [Active]; Ventolin Nebulizer [Active]; atenolol 100 mg Oral tab [Active]; fenofibrate oral oral [Active]; glipizide 5 mg Oral tab 1 tab once daily [Active]; - PMHx: 06/20 20:34 COPD; Diabetes - NIDDM; Hypertension; bb - PSHx: 20:34 Heart Surgery; neck [id number]; intestinal surgery - non-specific; bb - Immunization history:: Adult Immunizations not up to date. - Social history:: Smoking status: Patient uses tobacco products, unknown amount Patient uses alcohol. - Ebola Screening: : No symptoms or risks identified at this time. - Family history:: not pertinent. - Hospitalizations: : No recent hospitalization is reported. ROS: 21:08 Constitutional: Negative for fever, chills, and weight loss, Eyes: + absent vision rn right eye Neck: Negative for injury, pain, and swelling, Cardiovascular: Negative for chest pain, palpitations, and edema, Respiratory: Negative for cough, wheezing, and pleuritic chest pain, Abdomen/GI: Negative for abdominal pain, nausea, vomiting, diarrhea, and constipation, MS/Extremity: Negative for injury and deformity, Skin: Negative for injury, rash, and discoloration, Neuro: Negative for weakness, numbness, tingling, and seizure. Exam: 21:08 Constitutional: Thin male no acute distress Head/Face: Normocephalic, atraumatic. rn Eyes: Pupils equal round and reactive to light, extra-ocular motions intact. Lids and lashes normal. Conjunctiva and sclera are non-icteric and not injected. Hazy pupils bilaterally, no vision right eye to light or motion. ENT: Absent nose, dry MM, no stridor Chest/axilla: Normal chest wall appearance and motion. Nontender with no deformity. No lesions are appreciated. Cardiovascular: bradycardic, regular, no murmur Respiratory: Lungs have equal breath sounds bilaterally, clear to auscultation Abdomen/GI: soft, non-tender MS/ Extremity: Pulses equal, no cyanosis. Neurovascular intact. Full, normal range of motion. Equal circumference. Neuro: Awake and alert, GCS 15, oriented to person, place, time, and situation. Cranial nerves II-XII grossly intact. Motor strength 5/5 in all extremities. Sensory grossly intact. Slurred speech and smells of ETOH Vital Signs: 20:34 BP 118 / 64; Pulse 51; Resp 18 S; Temp 95.6(TE); Pulse Ox 94% on R/A; Weight 69.85 kg bb (R); Height 5 ft. 10 in. (177.80 cm) (R); 22:14 BP 145 / 71; Pulse 51; Resp 18 S; Pulse Ox 97% on R/A; jd3 23:32 BP 167 / 74; Pulse 43; Resp 17 S; Pulse Ox 96% on R/A; jd3 12 00:38 BP 188 / 95; Pulse 42; Resp 17 S; Pulse Ox 97% on R/A; jd3 01:22 BP 155 / 75; Pulse 45; Resp 18 S; Pulse Ox 94% on R/A; jd3 01:47 BP 154 / 78; Pulse 57; Resp 18 S; Pulse Ox 97% on R/A; jd3 03:08 BP 157 / 84; Pulse 46; Resp 15 S; Pulse Ox 97% on R/A; jd3 06/20 20:34 Body Mass Index 22.10 (69.85 kg, 177.80 cm) bb MDM: 06/20 20:26 Patient medically screened. rn 06/21 01:23 Differential Diagnosis: cardiac arrhythmia, cerebrovascular accident, idiopathic rn syncope, transient ischemic attack, vasovagal episode. Data reviewed: vital signs, nurses notes, lab test result(s), EKG, radiologic studies, CT scan, plain films, and as a result, I will admit patient. Counseling: I had a detailed discussion with the patient and/or guardian regarding: the historical points, exam findings, and any diagnostic results supporting the discharge/admit diagnosis, lab results, radiology results, the need for further work-up and treatment in the hospital. Admission orders: after a detailed discussion of the patient's condition and case, the admit orders are written by me. 06/20 20:33 Order name: Basic Metabolic Panel; Complete Time: 23:11 06/20 20:33 Order name: CBC with Diff 06/20 20:33 Order name: Magnesium; Complete Time: 23:11 06/20 20:33 Order name: Protime (+inr) 06/20 20:33 Order name: Ptt, Activated 06/20 20:33 Order name: Troponin (emerg Dept Use Only); Complete Time: 23:11 06/20 20:33 Order name: ETOH Level; Complete Time: 01:21 06/20 20:34 Order name: Hepatic Function; Complete Time: 23:11 06/20 20:34 Order name: Lipase; Complete Time: 23:11 06/20 21:08 Order name: Blood Culture Adult (2) 06/20 21:08 Order name: Lactate; Complete Time: 23:11 06/20 21:08 Order name: Procalcitonin; Complete Time: 01:21 06/21 01:36 Order name: Urine Dipstick--Ancillary (enter results); Complete Time: 01:59 ds4 06/21 02:21 Order name: CBC Smear Scan EDMS 06/20 20:33 Order name: CT Head Brain wo Cont; Complete Time: 21:53 rn 06/20 21:53 Order name: XRAY Chest (1 view) rn 06/20 23:20 Order name: CT Chest For PE Angio rn 06/21 02:28 Order name: Echo with Doppler [facility] 06/21 02:28 Order name: Basic Metabolic Panel [facility] 06/21 02:28 Order name: Basic Metabolic Panel [facility] 06/21 02:28 Order name: CBC with Automated Diff [facility] 06/21 02:28 Order name: CBC with Automated Diff [facility] 06/21 02:28 Order name: PTT, Activated Partial Thromb [facility] 06/21 02:28 Order name: PTT, Activated Partial Thromb [facility] 06/21 02:28 Order name: Troponin I [facility] 06/21 02:28 Order name: Troponin I [facility] 06/21 02:28 Order name: Troponin I [facility] 06/20 20:33 Order name: IV Start; Complete Time: 20:41 rn 06/20 20:33 Order name: EKG; Complete Time: 20:34 rn 06/20 20:33 Order name: Cardiac monitoring; Complete Time: 20:40 rn 06/20 20:33 Order name: EKG - Nurse/Tech; Complete Time: 21:32 rn 06/20 20:33 Order name: Labs collected and sent; Complete Time: 23:05 rn 06/20 20:33 Order name: NPO; Complete Time: 20:41 rn 06/20 20:33 Order name: O2 Per Protocol; Complete Time: 20:41 rn 06/20 20:33 Order name: O2 Sat Monitoring; Complete Time: 20:40 rn 06/20 20:33 Order name: Urine Dipstick-Ancillary (obtain specimen); Complete Time: 01:36 rn 06/21 02:28 Order name: CONS Physician Consult [facility] 06/21 02:28 Order name: CONS Physician Consult [facility] 06/21 02:28 Order name: Heart Healthy [facility] Administered Medications: 06/20 20:51 Drug: NS 0.9% 500 ml Route: IV; Rate: bolus; Site: left antecubital; jd3 21:50 Follow up: Response: No adverse reaction; IV Status: Completed infusion jd3 06/21 01:44 Drug: Atropine 0.5 mg Route: IVP; Site: left antecubital; jd3 03:15 Follow up: Response: No adverse reaction jd3 01:58 Drug: Rocephin - (cefTRIAXone) 1 grams Route: IVPB; Infused Over: 30 mins; Site: left jd3 antecubital; 03:16 Follow up: Response: No adverse reaction; IV Status: Completed infusion jd3 01:58 Drug: Zithromax 500 mg Route: IVPB; Infused Over: 1 hrs; Site: left antecubital; jd3 03:16 Follow up: Response: No adverse reaction; IV Status: Completed infusion jd3 01:58 Drug: Lovenox 70 mg Route: Sub-Q; Site: abdomen; jd3 03:17 Follow up: Response: No adverse reaction jd3 Disposition: 06/21/18 01:27 Hospitalization ordered by Karina Mendoza for Inpatient Admission. Preliminary diagnosis are Syncope and collapse, Bradycardia, unspecified, Hypothermia. - Bed requested for Intensive Care Unit. - Status is Inpatient Admission. jd3 - Condition is Stable. - Problem is new. - Symptoms have improved. UTI on Admission? No Signatures: Dispatcher [employer] EDMS Liat Saul RN RN John Chaudhry MD MD rn [facility] Martin Santiago RN RN j Corrections: (The following items were deleted from the chart) :58 01:27 Hospitalization Ordered by Karina Mendoza MD for Inpatient Admission. Preliminary rn diagnosis is Syncope and collapse; Bradycardia, unspecified; Hypothermia. Bed requested for Telemetry/MedSurg (Inpatient). Status is Inpatient Admission. Condition is Stable. Problem is new. Symptoms have improved. UTI on Admission? No. rn 02:48 01:58 06/21/2018 01:27 Hospitalization Ordered by Karina Mendoza MD for Inpatient mi Admission. Preliminary diagnosis is Syncope and collapse; Bradycardia, unspecified; Hypothermia. Bed requested for Intensive Care Unit. Status is Inpatient Admission. Condition is Stable. Problem is new. Symptoms have improved. UTI on Admission? No. rn 03:15 02:48 06/21/2018 01:27 Hospitalization Ordered by Karina Mendoza MD for Inpatient j Admission. Preliminary diagnosis is Syncope and collapse; Bradycardia, unspecified; Hypothermia. Bed requested for Intensive Care Unit. Status is Inpatient Admission. Condition is Stable. Problem is new. Symptoms have improved. UTI on Admission? No. mt
[2018-06-21] MEDS ORDERED: ATROPINE SULF 1 MG/10 ML SYR IV ONE (01:47)
[2018-06-21 01:54] LABS: Urine Blood NEGATIVE (NEG); Urine Glucose NEGATIVE (NEG); Urine Protein NEGATIVE (NEG); Urine pH 7.5 (5.0-7.0)
[2018-06-21] MEDS ORDERED: ENOXAPARIN 80 MG/0.8 ML SQ ONE (01:58)
[2018-06-21] MEDS ORDERED: CEFTRIAXONE/SWI 1gm 1 GM/10 ML SYR ONE (01:58)
[2018-06-21] MEDS ORDERED: AZITHROMYCIN 500 MG/250 ML BAG ONE (01:58)
[2018-06-21 02:18] LABS: Absolute Lymphocytes (CBC) 0.7 K/uL (0.7-4.9); Absolute Monocytes 0.4 K/uL (0.1-1.3); Absolute Neutrophil 5.6 K/uL (1.8-8.0); Basophils % 0.4 % (0-1.3); Eosinophils % 0.4 % (0-4.4); Lymphocytes % 9.8 % (15.3-44.8); MPV 7.8 fL (7.6-11.3); Monocytes % 6.2 % (3.3-12.3); RBC Red Blood Cell Count 3.54 M/uL (4.33-5.43)
[2018-06-21 02:22] LABS: Protime INR 1.21
[2018-06-21] MEDS ORDERED: ACETAMINOPHEN 500 MG TAB PO PRN (02:23)
[2018-06-21] MEDS ORDERED: ALPRAZOLAM 0.25 MG TABLET PO PRN (02:23)
[2018-06-21 03:25] LABS: Blood Morphology Comment NOTED (NOT SEEN); Macrocytosis 1+; Platelet Estimate ADEQ; Urine White Blood Cell Casts OK
--- NOTE | 2018-06-21 07:01 | RAD REPORT ---
EXAM DESCRIPTION: CT - Chest For Pe Angio - 06/21/2018 4:01 am CLINICAL HISTORY: Respiratory distress, COPD A preliminary report was provided at the time of the study and reviewed prior to final report. COMPARISON: CT chest November 2017, portable chest June 20 TECHNIQUE: Dynamically enhanced 3 mm thick images of the chest were obtained during administration o f approximately 150mL Isovue 370 IV contrast. Coronal and oblique MIP reconstruction images were gene rated and reviewed. Exam utilizes a protocol to evaluate the pulmonary arterial tree. All CT scans are performed using dose optimization technique as appropriate and may include automated exposure control or mA/KV adjustment according to patient size. FINDINGS: Right upper lobe pulmonary embolism is present filling a large branch that supplies 2 or m ore segments in the posterior right upper lobe. There is associated bronchial wall thickening in this region and focal bronchiectasis. The November examination demonstrated an 8 centimeter area of airspace d isease in central cavitation in the posterior right apex. This is presumed to have been a large cavit ating pneumonia. The cavitary component has decreased from a 5 x 3 centimeter size to the current 2.5 centimeter size. The amount of surrounding interstitial and airspace opacification has also substant ially diminished. There is parenchymal opacification that extends from the remnant cavitary mass tors ed the right hilum surrounding the involved pulmonary arteries. In the posterior right suprahilar reg ion there is a small new 12 mm area of cavitation that is surrounded by the parenchymal disease previ ously mentioned. Minimal scarring changes are seen elsewhere in the lung parenchyma. There are no other areas of pulmo nary embolic disease present. The right upper lobe pulmonary embolic disease is suspected to be chron ic and represent a thrombosis related to the pneumonia. The aorta as imaged shows no acute or suspicious finding. No pericardial thickening or effusion. No pleural effusion or pleural thickening. No mediastinal or hilar suspicious masses. No chest wall masses or abnormal axillary lymphadenopathy. IMPRESSION: Pulmonary embolism is present in the right upper lobe involving pulmonary artery branch supplying segments of the posterior right upper lobe. Prior November examination showed a large 8 centimeter mass with central cavitation suspected to be a larg e cavitary pneumonia. The cavitary component and surrounding lung parenchymal opacification have subs tantially reduced. There is remnant opacification of the parenchyma that extends towards the right hilum encircling the thrombosed pulmonary arteries with a new small area of cavitation along this pathway. The pulmonary embolic disease is suspected to be chronic and related to the cavitary pneumonia. No other area of thrombosis of the pulmonary tear whole tree. No other new or progressive lung parenc hymal process.
--- NOTE | 2018-06-21 07:42 | EKG ---
Test Date: 2018-06-20 Test Time: 21:01:25 [employer]: DYLON MEASUREMENT RESULTS: Intervals: Rate: 52 DC: 174 QRSD: 94 QT: 534 QTc: 496 [place]: P: 56 DC: 174 QRS: 56 T: 56 INTERPRETIVE STATEMENTS: Sinus bradycardia Septal infarct, age undetermined Abnormal ECG Compared to ECG 11/24/2017 17:15:45 Sinus tachycardia no longer present Myocardial infarct finding still present Electronically Signed On 06-21-18 07:41:59 PROCUREMENT REPRESENTATIVE by Beto Lange
--- NOTE | 2018-06-21 07:52 | P.CNS ---
Date of Consult: 06/21/18 Reason for Consult: Pulmonary embolism Chief Complaint: Syncopal attack possible pulmonary embolism History of Present Illness: Patient is 78 years of age very hard of hearing apparently he passed out fell had a syncopal attack at home admitted from the emergency room small-cell lung segmental pulmonary embolism in the right upper lobe said worsening dyspnea continues to smoke has COPD inflammatory component in the right upper lobe has improved blood pressure is elevated oxygenation satisfactory white count normal patient has a macrocytosis Allergies niacin [From Niaspan Extended-Release] Allergy (Verified 11/25/17 03:43) Rash Home Medications: Ipratropium/Albuterol Sulfate [Combivent Respimat 20-100 Mcg] 4 gm IH Q4H PRN Glipizide S.a. [Glucotrol Xl*] 5 mg PO BREAKFAST #30 tab 08/29/14 Atenolol [Tenormin] 100 mg PO DAILY AFTER SUPPER 09/23/14 Pantoprazole [Protonix Tab*] 40 mg PO DAILY #30 tab 01/11/15 Apixaban [Eliquis] 2.5 mg PO DAILY 11/26/17 Fenofibrate 160 mg PO DAILY 11/26/17 Albuterol Sulfate [Ventolin Hfa] 2 puff PRN PRN 06/21/18 Duloxetine HCl 20 mg PO DAILY 06/21/18 Levothyroxine [Synthroid] 100 mcg PO [id number] 06/21/18 Liothyronine Sodium [Cytomel] 5 mcg PO DAILY 06/21/18 - Past Medical/Surgical History Diabetic: Yes -: Hypertension -: COPD -: Coronary artery disease -: Type 2 diabetes -: Restless Leg syndrome -: Hyperlipidemia -: high cholesterol -: Head and neck cancer -: Skin Cancer -: Cardiac catheterization with stent placement x2 -: Coronary artery bypass grafting x 3 vessels -: Left carotid artery stent -: C-spine surgery -: Nose amputation - Family History Father Medical History: Lung disease, GI disease - Social History Smoking Status: Current every day smoker Alcohol use: Yes CD- Drugs: No Caffeine use: Yes Place of Residence: Home Review of Systems 10-point ROS is otherwise unremarkable General: Weakness Respiratory: Shortness of Breath Physical Examination Temp Pulse Resp BP Pulse Ox 98.1 F 43 L 16 158/64 H 99 06/21/18 03:20 06/21/18 05:55 06/21/18 05:55 06/21/18 05:55 06/21/18 05:55 General: Alert, Oriented x3 HEENT: Atraumatic Neck: Supple Respiratory: Clear to auscultation bilaterally, Diminished Cardiovascular: No edema, Regular rate/rhythm Gastrointestinal: Normal bowel sounds, Soft and benign Laboratory Data (last 24 hrs) 06/21/18 02:05: PT 14.3 H, INR 1.21, APTT 35.8 06/21/18 02:05: WBC 6.7, Hgb 13.0 L, Hct 38.0 L, Plt Count 329 06/20/18 22:10: Sodium 137, Potassium 4.0, BUN 10, Creatinine 0.70, Glucose 68 L , Magnesium 2.3, Total Bilirubin 0.5, AST 17, ALT 12, Alkaline Phosphatase 61, Lipase 142 - Problems (1) Pulmonary embolism Current Visit: Yes Status: Acute Plan: Patient is 78 years of age admitted with a syncopal attack he has a pulmonary embolism in the right upper lobe probably subacute I doubt that this is causing his syncope in addition patient is a low-dose Xarelto we need to be increased to 5 mg twice a day patient admitted with a syncopal episode is bradycardic is probably due to the beta-blockers that need to be stopped patient need to be monitored for the possibility of sick sinus syndrome Qualifiers: Chronicity: unspecified (2) Lung mass Current Visit: Yes Status: Acute Plan: Patient has this right upper lobe lung mass which appears to be inflammatory is decrease in size in addition he has a right hilar mass he is high risk for malignancy (3) COPD (chronic obstructive pulmonary disease) Onset Date: 01/10/15 Current Visit: No Status: Acute Plan: Patient also has underlying chronic obstructive pulmonary disease and uses Combivent and Ventolin at home will need a long-acting bronchodilator Qualifiers: COPD type: COPD with acute exacerbation Qualified Code(s): J44.1 - Chronic obstructive pulmonary disease with (acute) exacerbation (4) Hypertension Current Visit: Yes Status: Acute Plan: Dc atenolol change to lisinopril/hydrochlorothiazide
[2018-06-21] MEDS ORDERED: ALBUTEROL INHALER 60 PUFF/8 GM IH PRN ×2 (08:06→11:00)
[2018-06-21] MEDS: ARFORMOTEROL TARTRATE 15 MCG/2 ML VIAL.NEB NEB SCH ×2 (08:26→19:50)
--- NOTE | 2018-06-21 08:35 | RAD REPORT ---
EXAM DESCRIPTION: RAD - Chest Single View - 06/20/2018 10:29 pm CLINICAL HISTORY: Shortness of breath, respiratory distress COMPARISON: November 2017 TECHNIQUE: AP portable chest image was obtained 2219 hours . FINDINGS: Large right upper lobe pneumonia findings seen on the November examination have substantial ly cleared. There is a small remnant infiltrate or scarring present. Stranding extends inferiorly tow ards the right hilum probably postinflammatory scarring. Perihilar markings overall are mildly promin ent. Heart and vasculature are normal. No measurable pleural effusion and no pneumothorax. No acute b caesar abnormality seen. No acute aortic findings suspected. IMPRESSION: Right apical opacification with stranding extending to the right hilum. This is probably postinflammatory scarring from the large pneumonia seen on the November examination. Mild perihilar opacification slightly worse than the may examination. A minimal interstitial edema or infiltrate would be possible.
[2018-06-21] MEDS: FENOFIBRATE 160 MG TAB PO SCH (08:58)
[2018-06-21] MEDS: ASPIRIN EC 81 MG TAB PO SCH (08:58)
[2018-06-21] MEDS: APIXABAN 5 MG TABLET PO SCH ×2 (08:59→22:36)
[2018-06-21] MEDS: predniSONE 10 MG TAB PO SCH ×2 (08:59→22:36)
[2018-06-21] MEDS: hydroCHLOROthiazide 12.5 MG CAP PO SCH (08:59)
[2018-06-21] MEDS: PANTOPRAZOLE 40MG TABLET PO SCH (08:59)
[2018-06-21] MEDS ORDERED: MAXZIDE (HCTZ 25/TRIAMTERENE 37.5MG) TAB PO SCH (09:00)
[2018-06-21] MEDS ORDERED: LISINOPRIL 5 MG TAB PO SCH (09:00)
--- NOTE | 2018-06-21 09:34 | P.HP ---
Certification for Inpatient Patient admitted to: Inpatient With expected LOS: >2 Midnights Patient will require the following post-hospital care: None Practitioner: I am a practitioner with admitting privileges, knowledge of patient current condition, hospital course, and medical plan of care. Services: Services provided to patient in accordance with Admission requirements found in Title 42 Section 412.3 of the Code of Federal Regulations Patient History Date of Service: 06/21/18 Reason for admission: Syncopal attack; possible pulmonary embolism; bradyarrhythmia History of Present Illness: Patient is a 78-year-old gentleman who came into the hospital with near syncopal event. Patient became lightheaded and almost passed out. Patient was brought into the emergency room and heart rate was in the 30s to 40s. While patient was being brought by EMS patient was given atropine. Heart rate became elevated. Patient had to be given and distal dose of atropine in the ER. Patient workup in the emergency room revealed a pulmonary embolism. Patient also had a cavitary pneumonia that had been healing. The pneumonic process was pretty much resolved. Patient was having chest discomfort and hypoxemia. Patient was severely short of breath. Patient is given anti coagulation. Patient start on IV antibiotics. Patient be admitted to the hospital for further workup Allergies niacin [From Niaspan Extended-Release] Allergy (Verified 11/25/17 03:43) Rash Home Medications: Ipratropium/Albuterol Sulfate [Combivent Respimat 20-100 Mcg] 4 gm IH Q4H PRN Glipizide S.a. [Glucotrol Xl*] 5 mg PO BREAKFAST #30 tab 08/29/14 Atenolol [Tenormin] 100 mg PO DAILY AFTER SUPPER 09/23/14 Pantoprazole [Protonix Tab*] 40 mg PO DAILY #30 tab 01/11/15 Apixaban [Eliquis] 2.5 mg PO DAILY 11/26/17 Fenofibrate 160 mg PO DAILY 11/26/17 Albuterol Sulfate [Ventolin Hfa] 2 puff PRN PRN 06/21/18 Duloxetine HCl 20 mg PO DAILY 06/21/18 Levothyroxine [Synthroid] 100 mcg PO [id number] 06/21/18 Liothyronine Sodium [Cytomel] 5 mcg PO DAILY 06/21/18 - Past Medical/Surgical History Has patient received pneumonia vaccine in the past: Yes Diabetic: Yes -: Hypertension -: COPD -: Coronary artery disease -: Type 2 diabetes -: Restless Leg syndrome -: Hyperlipidemia -: high cholesterol -: Head and neck cancer -: Skin Cancer -: Cardiac catheterization with stent placement x2 -: Coronary artery bypass grafting x 3 vessels -: Left carotid artery stent -: C-spine surgery -: Nose amputation - Family History Father Medical History: Lung disease, GI disease - Social History Alcohol use: Yes CD- Drugs: No Caffeine use: Yes Place of Residence: Home Review of Systems 10-point ROS is otherwise unremarkable Physical Examination - Vital Signs Temperature: 98.1 F Blood Pressure: 171/59 Pulse: 71 Respirations: 16 Pulse Ox (%): 99 - Physical Exam General: Alert, In no apparent distress, Oriented x3 HEENT: Atraumatic, PERRLA, Mucous membr. moist/pink, EOMI, Sclerae nonicteric Neck: Supple, 2+ carotid pulse no bruit, No LAD, Without JVD or thyroid abnormality Respiratory: Clear to auscultation bilaterally, Normal air movement Cardiovascular: Regular rate/rhythm, Normal S1 S2, No murmurs Gastrointestinal: Normal bowel sounds, Soft and benign, Non-distended, No tenderness Musculoskeletal: No clubbing, No swelling, No tenderness Integumentary: No rashes Neurological: Normal gait, Normal speech, Normal strength at 5/5 x4 extr, Normal tone, Sensation intact, Cranial nerves 3-12 intact, Normal affect Lymphatics: No axilla or inguinal lymphadenopathy - Studies Laboratory Data (last 24 hrs) 06/21/18 02:05: PT 14.3 H, INR 1.21, APTT 35.8 06/21/18 02:05: WBC 6.7, Hgb 13.0 L, Hct 38.0 L, Plt Count 329 06/20/18 22:10: Sodium 137, Potassium 4.0, BUN 10, Creatinine 0.70, Glucose 68 L , Magnesium 2.3, Total Bilirubin 0.5, AST 17, ALT 12, Alkaline Phosphatase 61, Lipase 142 Assessment & Plan - Problems (Diagnosis) (1) Pulmonary embolism Current Visit: Yes Status: Acute Qualifiers: Chronicity: unspecified (2) Bradycardia Current Visit: Yes Status: Acute (3) Cavitary lesion of lung Current Visit: Yes Status: Acute (4) Hypertension Current Visit: Yes Status: Acute (5) COPD exacerbation Onset Date: 11/25/17 Current Visit: No Status: Acute (6) Diabetes mellitus Current Visit: No Status: Chronic Qualifiers: Diabetes mellitus type: type 2 Diabetes mellitus termite control servicer insulin use: without termite control servicer use Diabetes mellitus complication status: with other specified complication Qualified Code(s): E11.69 - Type 2 diabetes mellitus with other specified complication - Plan Plan: 1. Atropine the bedside 2. Monitor hemodynamics closely 3. Cardiology consultation 4. Echocardiogram 5. Pulmonary consultation 6. Anti coagulation 7. Monitor electrolytes 8. GI and DVT prophylaxis Discharge Plan: Home Plan to discharge in: Greater than 2 days - Advance Directives Does patient have a Living Will: No Does patient have a Durable POA for Healthcare: No - Code Status/Comfort Care Code Status Assessed: Yes Code Status: Full Code Critical Care: Yes Time Spent Managing PTS Care (In Minutes): 52
--- NOTE | 2018-06-21 09:36 | P.HP ---
Patient History Reason for admission: Syncopal attack possible pulmonary embolism Allergies niacin [From Niaspan Extended-Release] Allergy (Verified 11/25/17 03:43) Rash Home Medications: Ipratropium/Albuterol Sulfate [Combivent Respimat 20-100 Mcg] 4 gm IH Q4H PRN Glipizide S.a. [Glucotrol Xl*] 5 mg PO BREAKFAST #30 tab 08/29/14 Atenolol [Tenormin] 100 mg PO DAILY AFTER SUPPER 09/23/14 Pantoprazole [Protonix Tab*] 40 mg PO DAILY #30 tab 01/11/15 Apixaban [Eliquis] 2.5 mg PO DAILY 11/26/17 Fenofibrate 160 mg PO DAILY 11/26/17 Albuterol Sulfate [Ventolin Hfa] 2 puff PRN PRN 06/21/18 Duloxetine HCl 20 mg PO DAILY 06/21/18 Levothyroxine [Synthroid] 100 mcg PO [id number] 06/21/18 Liothyronine Sodium [Cytomel] 5 mcg PO DAILY 06/21/18 - Past Medical/Surgical History Has patient received pneumonia vaccine in the past: Yes Diabetic: Yes -: Hypertension -: COPD -: Coronary artery disease -: Type 2 diabetes -: Restless Leg syndrome -: Hyperlipidemia -: high cholesterol -: Head and neck cancer -: Skin Cancer -: Cardiac catheterization with stent placement x2 -: Coronary artery bypass grafting x 3 vessels -: Left carotid artery stent -: C-spine surgery -: Nose amputation - Family History Father Medical History: Lung disease, GI disease - Social History Alcohol use: Yes CD- Drugs: No Caffeine use: Yes Place of Residence: Home Physical Examination - Vital Signs Temperature: 98.1 F Blood Pressure: 171/59 Pulse: 71 Respirations: 16 Pulse Ox (%): 99 - Studies Laboratory Data (last 24 hrs) 06/21/18 02:05: PT 14.3 H, INR 1.21, APTT 35.8 06/21/18 02:05: WBC 6.7, Hgb 13.0 L, Hct 38.0 L, Plt Count 329 06/20/18 22:10: Sodium 137, Potassium 4.0, BUN 10, Creatinine 0.70, Glucose 68 L , Magnesium 2.3, Total Bilirubin 0.5, AST 17, ALT 12, Alkaline Phosphatase 61, Lipase 142 Assessment & Plan - Advance Directives Does patient have a Living Will: No Does patient have a Durable POA for Healthcare: No
[2018-06-21] MEDS ORDERED: ENOXAPARIN 60 MG/0.6 ML SQ SCH (10:00)
--- NOTE | 2018-06-21 10:01 | ECHO ---
HEIGHT: 5 ft 10 in WEIGHT: 154 lb 8 oz DATE OF STUDY: 06/21/[address]: Karina Mendoza MD 2-DIMENSIONAL: YES M.MODE: YES DOPPLER: YES COLOR FLOW: YES TDS: NO PORTABLE: YES DEFINITY: NO BUBBLE STUDY: NO DIAGNOSIS: RIGHT VENTRICULAR STRAIN CARDIAC HISTORY: CATHERIZATION: YES SURGERY: CABG PROSTHETIC VALVE: NO PACEMAKER: NO MEASUREMENTS (cm) DIASTOLIC (NORMALS) SYSTOLIC (NORMALS) IVSd 1.3 (0.6-1.2) LA Diam 4.5 (1.9-4.0) LVEF 66% LVIDd 4.8 (3.5-5.7) LVIDs 3.1 (2.0-3.5) %FS 36% LVPWd 1.2 (0.6-1.2) Ao Diam 3.0 (2.0-3.7) 2 DIMENSIONAL ASSESSMENT: RIGHT ATRIUM: NORMAL LEFT ATRIUM: DILATED RIGHT VENTRICLE: NORMAL LEFT VENTRICLE: LEFT VENTRICULAR HYPERTROPHY TRICUSPID VALVE: NORMAL MITRAL VALVE: NORMAL PULMONIC VALVE: NORMAL AORTIC VALVE: SCLEROSIS PERICARDIAL EFFUSION: NONE AORTIC ROOT: NORMAL LEFT VENTRICULAR WALL MOTION: NORMAL. DOPPLER/COLOR FLOW: MILD-MODERATE TRICUSPID REGURGITATION. TRACE OF MITRAL REGURGITATION. SEVERE PULMONARY HYPERTENSION. ESTIMATED RIGHT VENTRICULAR SYSTOLIC PRESSURE GREATER THAN 70mmHg. MILD AORTIC STENOSIS, ESTIMATED AORTIC VALVE AREA 1.7 CENTIMETERS SQUARED. PEAK/MEAN GRADIENT 30/15mmHg. COMMENTS: NORMAL LEFT VENTRICULAR EJECTION FRACTION. DILATED LEFT ATRIUM. LEFT VENTRICUALR HYPERTROPHY. AORTIC SCLEROSIS WITH MILD AORTIC STENOSIS, NO AORTIC REGURGITATION. TRACE OF MITRAL REGURGITATION. MILD-MODERATE TRICUSPID REGURGITATION. SEVERE PULMONARY HYPERTENSION. TECHNOLOGIST: DIANA MACHADO
[2018-06-21] MEDS: LIOTHYRONINE SOD 5 MCG TAB PO SCH (10:11)
[2018-06-21] MEDS: DULOXETINE 20 MG CAP PO SCH (10:11)
[2018-06-21] MEDS ORDERED: ASPIRIN PO PRN (11:22)
[2018-06-21] MEDS ORDERED: ACETAMINOPHEN PO PRN (11:22)
[2018-06-21] MEDS ORDERED: CAFFEINE PO PRN (11:22)
[2018-06-21] MEDS ORDERED: ALBUTEROL IH PRN (12:00)
--- NOTE | 2018-06-21 12:47 | CON ---
History Of Present Illness: Mr. Penn is 78. He had a syncopal episode while sitting. He was no t unconscious very long. When he came to the emergency room, he was found to be quite bradycardic, a lthough his blood pressure was never low. He had been on atenolol 100 mg a day, and in fact he had t aken his atenolol shortly before he actually had his syncopal spell. 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 He also has a history of an old pulmonary embolus, not an acute pulmonary embolus this admission. He had been instructed to take Eliquis 5 b.i.d., but somehow ended up on 2.5 once a day, a completely i nadequate dose. Physical Examination: General: He appears to be older than his stated age. Alert, oriented. Lungs: Reveal decreased breath sounds in the base, more bronchial breath sounds, slight wheezing, mi ld. HEENT: Reveals amputation of his nose. The soft cartilage has been nearly completely amputated. Neck: There is no carotid bruit. Heart: Exam is within normal limits. Extremities: Reveal normal pulses. Diagnostic Data: His electrocardiogram shows sinus bradycardia, old septal infarct. Impression: The patient probably needs to be either totally off atenolol or on a much lower dose. H e is off now. He needs to be on the appropriate dose of Eliquis. I think he is stable enough to be discharged to a regular floor and probably sent home fairly soon. He is a continuing cigarette smoker. He needs to be instructed again about smoking cessation. GENE/MAUREEN Voice ID: [id number] Report ID: [id number]
[2018-06-21] MEDS ORDERED: HOME MED 1 EA UNK IH PRN (18:13)
[2018-06-21] MEDS ORDERED: NA CHLORIDE 0.9% IVPB SCH (22:00)
[2018-06-21] MEDS ORDERED: VANCOMYCIN IVPB SCH (22:00)
[2018-06-21] MEDS: ATORVASTATIN 20 MG TAB PO SCH (22:35)
[2018-06-21] MEDS: VANCOMYCIN 1.25 GM in NA CHLORIDE 0.9% 250 ML IVPB SCH (23:00)
[2018-06-22] MEDS ORDERED: VANCOMYCIN 1 GM/VIAL ONE (00:51)
[2018-06-22] MEDS ORDERED: NA CHLORIDE 0.9% 250 ML ONE ×2 (00:52→01:12)
[2018-06-22] MEDS ORDERED: WATER FOR INJ,STERILE 20 ML ONE (01:15)
[2018-06-22 04:31] LABS: Absolute Lymphocytes (CBC) 0.9 K/uL (0.7-4.9); Absolute Monocytes 0.3 K/uL (0.1-1.3); Absolute Neutrophil 6.2 K/uL (1.8-8.0); Basophils % 0.3 % (0-1.3); Eosinophils % 0.7 % (0-4.4); Hematocrit 34.5 % (39.6-49.0); Lymphocytes % 11.7 % (15.3-44.8); MPV 8.2 fL (7.6-11.3); Monocytes % 4.5 % (3.3-12.3); RBC Red Blood Cell Count 3.25 M/uL (4.33-5.43)
[2018-06-22] MEDS ORDERED: CYANOCOBALAMIN 1000MCG/ML INJ IM ONE (04:39)
[2018-06-22] MEDS ORDERED: FUROSEMIDE 40 MG/4 ML VIAL IV ONE (04:46)
[2018-06-22 04:50] LABS: BUN Blood Urea Nitrogen 15 mg/dL (7-18); Bicarbonate 30 mmol/L (21-32); Glucose Level 104 mg/dL (74-106); Sodium Level 138 mmol/L (136-145)
[2018-06-22 05:13] LABS: Folic Acid, (Folate) 8.4 ng/mL (3.1-17.5); Thyroid Stimulating Hormone 0.34 uIU/mL (0.360-3.740)
[2018-06-22] MEDS: LOSARTAN POTASSIUM 50 MG TABLET PO SCH ×4 (06:09→21:06)
[2018-06-22] MEDS: LEVOTHYROXINE SOD 0.1 MG TAB PO SCH (06:09)
[2018-06-22] MEDS: PANTOPRAZOLE 40MG TABLET PO SCH (06:09)
[2018-06-22] MEDS: APIXABAN 5 MG TABLET PO SCH ×2 (08:16→21:06)
[2018-06-22] MEDS: FENOFIBRATE 160 MG TAB PO SCH (08:17)
[2018-06-22] MEDS: hydroCHLOROthiazide 12.5 MG CAP PO SCH (08:17)
[2018-06-22] MEDS: ASPIRIN EC 81 MG TAB PO SCH (08:17)
[2018-06-22] MEDS: predniSONE 10 MG TAB PO SCH ×2 (08:17→21:06)
[2018-06-22] MEDS: CYANOCOBALAMIN 1,000 MCG TAB SL SCH (08:17)
[2018-06-22] MEDS: LIOTHYRONINE SOD 5 MCG TAB PO SCH (08:21)
[2018-06-22] MEDS: ARFORMOTEROL TARTRATE 15 MCG/2 ML VIAL.NEB NEB SCH ×2 (08:30→20:00)
[2018-06-22] MEDS: DULOXETINE 20 MG CAP PO SCH (08:37)
[2018-06-22] MEDS ORDERED: NIFEDIPINE XL 30 MG TABLET PO SCH ×2 (09:00→17:00)
[2018-06-22] MEDS: VANCOMYCIN 1.25 GM in NA CHLORIDE 0.9% 250 ML IVPB SCH ×2 (12:12→22:38)
--- NOTE | 2018-06-22 16:51 | P.PN ---
Subjective Date of Service: 06/22/18 Chief Complaint: Syncopal attack; possible pulmonary embolism; bradyarrhythmia Subjective: No new changes, No C/O voiced, Improving Patient seen and examined at bedside. at bedside. Chart reviewed and case discussed with nursing staff. Patient during well, still bradycardic, though asymptomatic. Denies any chest pain, dizziness, vision changes, shortness of breath, headache. Blood pressure also elevated overnight. Review of Systems As noted Physical Examination - Vital Signs Temperature: 99.6 F Blood Pressure: 184/70 Pulse: 50 Respirations: 20 Pulse Ox (%): 94 - Physical Exam General: Alert, In no apparent distress, Oriented x3 HEENT: Atraumatic, PERRLA, EOMI Neck: Supple, JVD not distended Respiratory: Clear to auscultation bilaterally, Normal air movement Cardiovascular: Regular rate/rhythm, Normal S1 S2 Gastrointestinal: Normal bowel sounds, No tenderness Musculoskeletal: No tenderness Integumentary: No rashes Neurological: Normal speech, Normal tone, Normal affect Lymphatics: No axilla or inguinal lymphadenopathy Assessment And Plan - Plan - Problems (Diagnosis) (1) Pulmonary embolism Continue Eliquis 5 mg b.i.d. dosage. Cardiology consulted, recommendations appreciated Pulmonology consulted, recommendations appreciated (2) Bradycardia Patient now off of atenolol. This was what was likely causing his bradycardia. Will discontinue the medication on discharge. (3) Cavitary lesion of lung (4) Hypertension Patient with elevated blood pressures, restarted nifedipine, losartan and hydrochlorothiazide Will continue to monitor, adjust medications as needed (5) COPD exacerbation Continue Nebulizer treatments Pulmonology consulted, recommendations appreciated Oxygen per protocol (6) Diabetes mellitus Continue Accu-Cheks, sliding scale insulin. DVT prophylaxis: Eliquis GI prophylaxis: None Diet: Heart healthy Disposition: Monitor overnight, likely discharge tomorrow. Discharge Plan: Home Plan to discharge in: 24 Hours Physician Review: Patient Assessed, Agree with Above Assessment and Plan Time Spent Managing PTS Care (In Minutes): 30
[2018-06-22] MEDS ORDERED: HYDRALAZINE HCL 20 MG/ML VIAL IV ONE (18:52)
[2018-06-22] MEDS: ATORVASTATIN 20 MG TAB PO SCH (21:06)
--- NOTE | 2018-06-23 04:13 | PN ---
Date of Progress Note: 06/22/2018 Subjective: Mr. Penn is a 78-year-old, who came in with syncope. Dr. Lange saw him yesterday o n 06/21/2018. Recommendations were to discontinue the atenolol because of possible bradycardia and o rthostatic hypotension. He needs to go home today on Eliquis 5 mg b.i.d. He was taking 2.5 mg daily and he was recommended to stick to 5 mg b.i.d. as that is the appropriate dose. We will be happy to see him in the office in the next 2 weeks. BELLA/MAUREEN Voice ID: [id number] Report ID: [id number]
[2018-06-23 05:32] VITALS: TEMP 98.6
[2018-06-23] MEDS: PANTOPRAZOLE 40MG TABLET PO SCH (05:49)
[2018-06-23] MEDS: LEVOTHYROXINE SOD 0.1 MG TAB PO SCH (05:51)
[2018-06-23 06:01] VITALS: BMI 21.2
[2018-06-23] MEDS: ARFORMOTEROL TARTRATE 15 MCG/2 ML VIAL.NEB NEB SCH (07:45)
[2018-06-23 08:04] VITALS: O2SAT 93
[2018-06-23 08:11] VITALS: BP 147/71
[2018-06-23] MEDS: FENOFIBRATE 160 MG TAB PO SCH (08:57)
[2018-06-23] MEDS: ASPIRIN EC 81 MG TAB PO SCH (08:57)
[2018-06-23] MEDS: LIOTHYRONINE SOD 5 MCG TAB PO SCH (08:57)
[2018-06-23] MEDS: CYANOCOBALAMIN 1,000 MCG TAB SL SCH (08:57)
[2018-06-23] MEDS: hydroCHLOROthiazide 12.5 MG CAP PO SCH (08:57)
[2018-06-23] MEDS: predniSONE 10 MG TAB PO SCH (08:57)
[2018-06-23] MEDS: DULOXETINE 20 MG CAP PO SCH (08:57)
[2018-06-23] MEDS: APIXABAN 5 MG TABLET PO SCH (08:57)
[2018-06-23] MEDS: LOSARTAN POTASSIUM 50 MG TABLET PO SCH (08:58)
--- NOTE | 2018-06-23 14:51 | P.DS ---
Admission Date: 06/21/18 Discharge Date: 06/23/18 Disposition: ROUTINE DISCHARGE Discharge Condition: GOOD Reason for Admission: Syncopal attack; possible pulmonary embolism; bradyarrhythmia Consultations: Cardiology Pulmonology Brief History of Present Illness: Patient is a 78-year-old gentleman who came into the hospital with near syncopal event. Patient became lightheaded and almost passed out. Patient was brought into the emergency room and heart rate was in the 30s to 40s. While patient was being brought by EMS patient was given atropine. Heart rate became elevated. Patient had to be given another dose of atropine in the ER. Patient workup in the emergency room revealed a pulmonary embolism. Patient also had a cavitary pneumonia that had been healing. The pneumonic process was pretty much resolved. Patient was having chest discomfort and hypoxemia. Patient was severely short of breath. Patient is given anti coagulation. Patient start on IV antibiotics. Patient be admitted to the hospital for further workup Hospital Course: (1) Pulmonary embolism Patient was taking Eliquis 2.5 mg at home. He was decreased to the proper dosage of 5 mg twice a day. Cardiology was consulted along with pulmonology. No other changes made at this time. He was monitored in the ICU, remained stable in regards to his breathing status. At the time of discharge, he was breathing well on room air, not tachypneic, no increased work of breathing and he was hemodynamically stable. He was discharged on Eliquis 5 mg b.i.d. dosing. He was explained the importance of taking medication as prescribed. (2) Bradycardia This was likely secondary to atenolol. Atenolol was discontinued. He will not be taking this medication after discharge. Explained to patient regarding medication changes (3) Cavitary lesion of lung (4) Hypertension Patient with elevated blood pressures, restarted nifedipine, losartan and hydrochlorothiazide. Blood pressure improved after that. Atenolol discontinued on discharge, continue other blood pressure medications. Vital Signs/Physical Exam: Temp Pulse Resp BP Pulse Ox 98.6 F 60 16 147/71 H 94 06/23/18 08:00 06/23/18 08:00 06/23/18 08:00 06/23/18 08:57 06/23/18 08:00 General: Alert, In no apparent distress, Oriented x3 HEENT: Atraumatic, PERRLA, EOMI Neck: Supple, JVD not distended Respiratory: Clear to auscultation bilaterally, Normal air movement Cardiovascular: Regular rate/rhythm, Normal S1 S2 Gastrointestinal: Normal bowel sounds, No tenderness Musculoskeletal: No tenderness Integumentary: No rashes Neurological: Normal speech, Normal tone, Normal affect Lymphatics: No axilla or inguinal lymphadenopathy Laboratory Data at Discharge: WBC 7.5 K/uL (4.3-10.9) 06/22/18 03:50 Hgb 12.0 g/dL (13.6-17.9) L 06/22/18 03:50 Hct 34.5 % (39.6-49.0) L 06/22/18 03:50 Plt Count 339 K/uL (152-406) 06/22/18 03:50 PT 14.3 SECONDS (9.5-12.5) H 06/21/18 02:05 INR 1.21 06/21/18 02:05 APTT 36.2 SECONDS (24.3-36.9) 06/22/18 03:50 Sodium 138 mmol/L (136-145) 06/22/18 03:50 Potassium 4.0 mmol/L (3.5-5.1) 06/22/18 03:50 BUN 15 mg/dL (7-18) 06/22/18 03:50 Creatinine 0.80 mg/dL (0.55-1.3) 06/22/18 03:50 Glucose 104 mg/dL (74-106) 06/22/18 03:50 Magnesium 2.3 mg/dL (1.8-2.4) 06/20/18 22:10 Total Bilirubin 0.5 mg/dL (0.2-1.0) 06/20/18 22:10 AST 17 U/L (15-37) 06/20/18 22:10 ALT 12 U/L (12-78) 06/20/18 22:10 Alkaline Phosphatase 61 U/L (45-117) 06/20/18 22:10 Troponin I < 0.02 ng/mL (0.0-0.045) 06/21/18 12:00 Lipase 142 U/L (73-393) 06/20/18 22:10 Home Medications: Ipratropium/Albuterol Sulfate [Combivent Respimat 20-100 Mcg] 4 gm IH Q4H PRN Glipizide S.a. [Glucotrol Xl*] 5 mg PO BREAKFAST #30 tab 08/29/14 Atenolol [Tenormin] 100 mg PO DAILY AFTER SUPPER 09/23/14 Pantoprazole [Protonix Tab*] 40 mg PO DAILY #30 tab 01/11/15 Fenofibrate 160 mg PO DAILY 11/26/17 Acetylcyst 20% Resp [Mucomyst 20% (FOR RESPIRATORY)*] 3 ml NEB BID 06/21/18 Albuterol Neb [Proventil 0.083% Neb Soln] 2.5 mg IH BID 06/21/18 Albuterol Sulfate [Ventolin Hfa] 2 puff IH Q4H PRN 06/21/18 Aspirin/Acetaminophen/Caffeine [Excedrin Migraine Caplet] 1 each PO DAILY PRN Duloxetine HCl 20 mg PO DAILY 06/21/18 Hydrocodone Bit/Acetaminophen [Hydrocodon-Acetaminophn 10-325] 1 tab PO Q6H PRN 06/21/18 Levothyroxine [Synthroid*] 100 mcg PO [id number] 06/21/18 Liothyronine Sodium [Cytomel] 5 mcg PO DAILY 06/21/18 Nifedipine [Nifedipine ER] 30 mg PO DAILY 06/21/18 Simvastatin 40 mg PO BEDTIME 06/21/18 Apixaban [Eliquis] 5 mg PO BID #60 tablet 06/23/18 hydroCHLOROthiazide [Hydrochlorothiazide*] 12.5 mg PO DAILY cap 06/23/18 New Medications: Apixaban [Eliquis] 5 mg PO BID #60 tablet Patient Discharge Instructions: Please follow up with your primary care physician in 1 week. Please follow up with your collateral clerk in 2 weeks. Diet: ADA Activity: Ad amy Followup: Nikolay Granado MD [ACTIVE - CAN ADMIT] - Ronal Olson MD [Primary Care Provider] - Beto Lange MD [ACTIVE - CAN ADMIT] - Physician Review: Patient Assessed, Agree with Above Assessment and Plan Time spent managing pt's care (in minutes): 55
== END 2018-06-23 11:36 | disposition home or self-care (01) | DRG 193 ==
LOC: ER 20:23 → ERHOLD 06-21 02:25 → 3RD-ICU 06-21 03:04 → 4TH 06-21 11:20
PROVIDERS: ADMIT Hospitalist; ATTEND Family Medicine
DX: J18.1 Lobar pneumonia, unspecified organism (principal); K85.90 Acute pancreatitis without necrosis or infection, unspecified; I27.82 Chronic pulmonary embolism; J44.0 Chronic obstructive pulmonary disease with (acute) lower respiratory infection; J44.1 Chronic obstructive pulmonary disease with (acute) exacerbation; Z79.01 Long term (current) use of anticoagulants; E78.5 Hyperlipidemia, unspecified; D63.8 Anemia in other chronic diseases classified elsewhere; J18.8 Other pneumonia, unspecified organism; I10 Essential (primary) hypertension; K21.9 Gastro-esophageal reflux disease without esophagitis; E11.69 Type 2 diabetes mellitus with other specified complication; Z79.84 Long term (current) use of oral hypoglycemic drugs; I25.10 Atherosclerotic heart disease of native coronary artery without angina pectoris; Z95.1 Presence of aortocoronary bypass graft; Z95.5 Presence of coronary angioplasty implant and graft; G25.81 Restless legs syndrome; E78.00 Pure hypercholesterolemia, unspecified; F17.210 Nicotine dependence, cigarettes, uncomplicated; C76.0 Malignant neoplasm of head, face and neck
CPT/HCPCS: 36415; 70450; 71045; 71275; 80048; 80076; 80202; 80320; 81003; 82607; 82746; 82962; 83605; 83690; 83735; 84145; 84439; 84443; 84484; 85025; 85610; 85730; 87040; 87205; 93005; 93306; 94640; 96361; 96365; 96368; 96372; 96375; 97163; 99285; J0360; J0456; J0696; J1650; J1940; J3420; J7512; J7605; Q9967